=== PATIENT | male | born 1995 | race Caucasian/White ===

== ENCOUNTER 2024-04-18 17:45 | Emergency (ER) | payer BC, OTHER, SELFPAY ==
--- NOTE | ~2024-04-18 | XR_ITS ---
EXAMINATION: XR abdomen/kub 1V DATE: 04/19/2024 01:40 INDICATION: Kidney stone. TECHNIQUE: A supine view of the abdomen on 2 radiographs was obtained. COMPARISON: CT abdomen and pelvis 04/18/2024 FINDINGS: There are no dilated loops of bowel. There is contrast in the renal collecting system. Ther e is mild right hydronephrosis. There is a 9 mm stone at right ureteropelvic junction. The bladder is distended. IMPRESSION: 1. 9 mm stone at right ureteropelvic junction with mild right hydronephrosis. Reviewed, dictated and finalized at location A. IEVAL SPECIALIST
--- NOTE | ~2024-04-18 | CT_ITS ---
EXAMINATION: CT abdomen pelvis w con DATE: 04/18/2024 22:20 INDICATION: Lower abdominal pain. Nausea and vomiting. TECHNIQUE: Computed tomography (CT) of the abdomen and pelvis was performed with 100 mL Omnipaque 350 intravenous contrast. Automated exposure control and iterative reconstruction technique were employe d. The dose-length product was 834.53 mGy-cm. COMPARISON: None. FINDINGS: The visualized portions of the lung bases demonstrate mild atelectasis. No pleural effusion . The heart size is normal. No pericardial effusion. The liver, gallbladder, spleen, pancreas, and ad renal glands are normal. There are 3 stones in right kidney measuring up to 8 mm. There is mild right hydronephrosis. There is a 9 mm stone at right ureteropelvic junction. There are cysts in left kidne y measuring up to 2.4 cm. There is a 3 mm stone in left kidney. There are no dilated loops of bowel. The appendix is normal. There are no pathologically enlarged lymph nodes. There is no free intraperit leyva fluid. There is mild lumbar spondylosis. IMPRESSION: 1. 9 mm stone at right ureteropelvic junction with mild right hydronephrosis. 2. Bilateral nonobstructing kidney stones. Reviewed, dictated and finalized at location A. T
[2024-04-18 17:53] VITALS: BP 143/89; PULSE 91; RESP 18; TEMP 36.7; O2SAT 100
--- NOTE | 2024-04-18 21:20 | ED_ITS ---
HPI - Abdominal Pain General Chief Complaint: Abdominal Pain Stated Complaint: ABD PAIN SINCE 1200 Time Seen by Provider: 04/18/24 20:25 Source: patient Mode of arrival: ambulatory Limitations: no limitations History of Present Illness HPI narrative: Patient is a 29-year-old male who presents the ED with report of lower abdominal pain. Patient reports he began having pain around noon today. States pain has progressively worsened since then. Present throughout his lower abdomen and wraps around to his lower back like a band. Reports having nausea, vomiting. Did have a normal bowel movement around 2:00 p.m.. Denies rectal bleeding or melena. Denies known fevers. Denies urinary complaints. Denies cough or cold symptoms. Attempted taking Advil and Gas-X at home without improvement. States he has had this pain in the past with eating certain foods but the pain today was much more severe and persistent than any previous episodes. Related Data Allergies Allergy/AdvReac Type Severity Reaction Status Date / Time No Known Allergies Allergy Verified 04/18/24 17:46 Review of Systems 2 Review of Systems: All systems reviewed & are unremarkable except as noted in HPI. All systems reviewed & are unremarkable except as noted in HPI and below Exam 2 Narrative: GENERAL: Mildly ill/uncomfortable appearing, obese with BMI of 33.0, non-toxic, in mild acute distress due to pain. HEAD: Normocephalic, atraumatic. RESPIRATORY: Airway patent, respirations nonlabored. Clear to auscultation bilaterally, no rales, rhonchi, wheezing. CARDIOVASCULAR: Regular rate and rhythm without murmurs, rubs, or gallops. ABDOMINAL: Soft, diffuse tenderness in mid lower abdomen, suprapubic region. Nondistended. Normoactive BS. MUSCULOSKELETAL: Moves all extremities. No gross deformities. SKIN: Warm, dry, normal color. NEURO: A&O X3. Speech clear. PSYCHIATRIC: Appropriate mood and affect. Normal interaction. Course Vital Signs Vital signs: Vital Signs Temperature 98.1 F 04/18/24 17:53 Pulse Rate 91 04/18/24 17:53 Respiratory Rate 18 04/18/24 17:53 Blood Pressure 143/89 H 04/18/24 17:53 Pulse Oximetry 100 04/18/24 17:53 Oxygen Delivery Room Air 04/18/24 17:53 Temperature 98.6 F 04/18/24 21:42 Pulse Rate 84 04/18/24 21:42 Respiratory Rate 18 04/18/24 21:42 Blood Pressure 139/83 04/18/24 21:42 Pulse Oximetry 99 04/18/24 21:42 Oxygen Delivery Room Air 04/18/24 17:53 MDM - Abdominal Pain MDM Narrative Medical decision making narrative: Patient presented to ED with lower abdominal pain, nausea, vomiting. Vital signs are stable upon arrival. Patient is in no acute distress, but does appear mildly uncomfortable. He is afebrile here. Laboratory studies with marked leukocytosis of 18.9. Neutrophil predominance. No bandemia. CMP with anion gap of 15. Fluids ongoing. Otherwise stable electrolytes. Normal kidney function. LFTs are within normal range. Normal lipase. UA completely clear, no evidence of infection or blood. CT abd/pelvis obtained showing 11 mm right UPJ stone, moderate hydronephrosis. Discussed lab and imaging findings with patient. He has never had previous kidney stones. Does have family history of kidney stones. He is feeling much improved after dose of morphine and Zofran in the ED. Given 2 L of fluid. Will discuss with urology. KUB obtained. Discussed case with Dr. Domínguez, urology, agrees with plan for outpatient follow-up, strict return precautions. Call office on Saturday. Discussed these recommendations with patient. He is in agreement. He remains asymptomatic. Denying any current pain. Will discharge with Flomax, pain and nausea medicine for more severe episodes of pain if needed. Discussed very strict return precautions. Patient voiced understanding. Discharged in stable condition. Medical Records Attestation: I reviewed the patient's medical records. Lab Data Attestation: I reviewed the patient's lab results. 04/18/24 21:28 04/18/24 21:28 Labs: Lab Results 04/18/24 04/19/24 Range/Units 21:28 01:27 WBC 18.9 H (4.5-10.0) K/mm3 RBC 5.00 (4.6-6.20) M/mm3 Hgb 15.0 (14.0-18.0) g/dL Hct 43.0 (42.0-52.0) % MCV 86.0 (80-100) fl MCH 30.0 (26-34) pg MCHC 34.9 (32-36) g/dl RDW 12.7 (11.5-14.5) % Plt Count 368 (150-375) k/mm3 MPV 9.8 (7.4-10.4) fl Immature Gran % (Auto) 0.5 (0-0.5) % Neut % (Auto) 91.0 H (45.5-73.1) % Lymph % (Auto) 5.5 L (18.3-44.2) % [place] % (Auto) 2.7 (2.6-8.5) % Eos % (Auto) 0.0 (0-4.4) % Baso % (Auto) 0.3 (0.2-1.2) % Lymph # (Auto) 1.03 (0.9-3.2) K/mm3 [place] # (Auto) 0.5 (0.1-0.6) K/mm3 Eos # (Auto) 0.0 (0-0.3) K/mm3 Baso # (Auto) 0.1 (0.0-0.1) K/mm3 Abs Immat Gran (auto) 0.10 H (0.00-0.031) K/mm3 Absolute Neuts (auto) 17.2 H (1.3-6.7) K/mm3 Absolute Nucleated RBC 0.000 (0.0-0.012) K/mm3 Nucleated RBC % 0.0 (0.0-0.2) % Sodium 140 (137-145) mmol/L Potassium 4.2 (3.4-5.0) mmol/L Chloride 103 (98-107) mmol/L Carbon Dioxide 22 (22-30) mmol/L Anion Gap 15 H (4-12) mmol/L BUN 16 (9-20) mg/dL Creatinine 0.98 (0.7-1.3) mg/dL Estim Creat Clear Calc 101 ml/min Estimated GFR > 60 (59 - ) Glucose 142 H (65-110) mg/dL Calcium 10.2 (8.4-10.2) mg/dL Total Bilirubin 0.7 (0.2-1.3) mg/dL AST 39 (17-59) U/L ALT 55 H (6-50) U/L Alkaline Phosphatase 62 (38-126) U/L Total Protein 8.0 (6.3-8.2) g/dL Albumin 5.0 (3.5-5.1) g/dL Lipase 63 (23-300) U/L Urine Color Yellow (Yellow) Urine Appearance Clear (Clear) Urine pH 7.0 (5.0-9.0) Ur Specific [place] 1.033 (1.001-1.035) Urine Protein Negative (Negative) mg/dL Urine Glucose (UA) Negative (Negative) mg/dL Urine Ketones Negative (Negative) mg/dL Ur Blood (Man) Negative (Negative) Urine Nitrate Negative (Negative) Urine Bilirubin Negative (Negative) Urine Urobilinogen 0.2 (<2.0) mg/dL Leukocyte Esterase Rfl Negative (Negative) MINNIE/UL Imaging Data Attestation: I personally reviewed and interpreted this imaging study as follows: Radiologist's impression: STAT RAD CT abd/pelvis: Obstructing 11 mm right UPJ stone. Moderate hydronephrosis of the right kidney. Multiple nonobstructing right-sided renal stones, measuring up to 5 mm. 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 Take Flomax daily as prescribed. Continue Tylenol as needed for pain. Utilize [place] as needed for more severe pain. Recommend avoiding NSAIDs in preparation for future urologic procedure (no ibuprofen, Motrin, Aleve, naproxen). Use Zofran for nausea. Stay well hydrated. Return to the ED if you experience worsening or severe pain, unable to keep down food/drink, fevers, uncontrollable nausea/vomiting, unable to urinate, or any other symptoms of concern. Patient Language: Frisian Prescriptions: New hydrocodone-acetaminophen 5-325 mg tablet 1 tablet PO Q6H PRN (Reason: pain) Qty: 15 0RF tamsulosin [Flomax] 0.4 mg capsule 0.4 mg PO DAILY Qty: 7 0RF ondansetron 4 mg tablet,disintegrating 4 mg PO Q8H PRN (Reason: nausea and vomiting) Qty: 15 0RF Follow-up/Referrals: Omid Domínguez MD [Physician] - (UROLOGY) [facility] [Primary Care Provider] - Time of Disposition: 02:31
[2024-04-18] MEDS: ONDANSETRON INJ 4 MG/2 ML VIAL IV PUSH (21:33)
[2024-04-18] MEDS: SODIUM CHLORIDE 0.9% IV 1,000 ML 999 ML IV CONT ×2 (21:33→23:43)
[2024-04-18 21:34] LABS: Basophils Absolute Auto 0.1 K/mm3 (0.0-0.1); Basophils Percent Auto 0.3 % (0.2-1.2); Immature Granulocyte Percent A 0.5 % (0-0.5); Lymphocytes Absolute Auto 1.03 K/mm3 (0.9-3.2); Lymphocytes Percent Auto 5.5 % (18.3-44.2); Mean Corpuscular HGB Conc 34.9 g/dl (32-36); Mean Platelet Volume 9.8 fl (7.4-10.4); Monocytes Absolute Auto 0.5 K/mm3 (0.1-0.6); Monocytes Percent Auto 2.7 % (2.6-8.5); Neutrophils Absolute Auto 17.2 K/mm3 (1.3-6.7); Platelet Count Result 368 k/mm3 (150-375); Red Cell Distribution Width 12.7 % (11.5-14.5); White Blood Count 18.9 K/mm3 (4.5-10.0)
[2024-04-18] MEDS: MORPHINE SULFATE (*CRX) 4 MG/ML INJ IV PUSH (21:35)
[2024-04-18 21:42] VITALS: BP 139/83; PULSE 84; RESP 18; TEMP 37; O2SAT 99
--- OUTSIDE RECORDS SUMMARY | 2024-04-18 21:42 | XMS_ITS | Encounter Summary ---
Author Name [facility] [place] [facility] Address [address] [place] [address] Care Team Providers Care Rigger Up Name Role Phone DANK MENDOSA Primary Care Provider Unavail able Selected Encounter This section includes the information on record at [place] for the Encounter. Date/Time Encounter Type Encounter Description Reason Pro vider Source Jan 29, 2024 11:01 AM Outpatient Encounter [facility] Encounter Template Text not used by [place] Plan of Treatment: Future Appointments (+ 6 months) and Future Tests (+/- 45 days) The Plan of Treatment section includes future care activities for the patient from all [place] treatmentfacilities. This section includes future appointments and future orders which are active, pending or scheduled. Future Appointments This section includes appointments that were scheduled to occur 6 months from the date of the Encounter, up to a maximum of 20 appointments. The data comes from all [place] treatment facilities. Appointment Date/Time Appointment Type Appointme nt Facility Name Jan 31, 2024 10:00 AM AMBULATORY - NONE [facility] Feb 28, 2024 01:00 PM AMBULATORY - MEDICINE [facility] Mar 05, 2024 01:00 PM AMBULATORY - NONE [facility] Mar 10, 2024 03:00 PM AMBULATORY - MEDICINE [facility] Mar 13, 2024 10:30 AM AMBULATORY - NONE [facility] Mar 20, 2024 09:00 AM AMBULATORY - NONE [facility] BHARGAVI Broderick [facility] Mar 20, 2024 10:30 AM AMBULATORY - NONE [facility] Apr 24, 2024 10:00 AM AMBULATORY - NONE [facility]ARGAV[facility] Apr 24, 2024 01:00 PM AMBULATORY - MEDICINE [facility] Apr 29, 2024 06:45 AM AMBULATORY - NONE [facility] Apr 29, 2024 07:00 AM AMBULATORY - MEDICINE [facility] May 20, 2024 03:00 PM AMBULATORY - SURGERY [facility] May 22, 2024 10:30 AM AMBULATORY - NONE [facility] May 29, 2024 10:30 AM AMBULATORY - NONE [facility] BHARGAV[facility] Jun 16, 2024 03:00 PM AMBULATORY - MEDICINE [facility] Active, Pending, and Scheduled Orders This section includes a listing of several types of active, pending, and scheduled orders, including clinic medications orders, diagnostic test orders, procedure orders and consult orders; where the start date of the order is 45 days before the date of the Encounter or 45 days after the date of theEncounter. The data comes from all [place] treatment facilities. Test Date/Time Test Type Test Details Facility Name Jan 17, 2024 09:07 AM Procedure Order CP ELECTRO PHYSIOLOGY STL CP ELECTROPHYSIOLOGY STL Proc [facility] Jan 29, 2024 11:17 AM Consult Order [facility] MANDIBULAR REPOSITIONING DEVICE [facility] Cons [facility] Encounter Notes: All associated encounter notes This section contains the clinical notes associated to the Encounter. Date/Time Encounter Note(s) Provider Source Jan 29, 2024 11:01 AM ADMINISTRATIVE NOT E: LOCAL TITLE: ADMINISTRATIVE STL STANDARD TITLE: ADMINISTRATIVE NOTE DATE OF NOTE: JAN 29, 2024@11:01 ENTRY DATE: JAN 29, 2024@11:01:51 AUTHOR: DILLAN MARTINEZ COSIGNER: URGENCY: STATUS: COMPLETED [facility] received a call from the ; 's name, last four of N, and date of were used to verify identity. REASON FOR CALL: [facility] CARE MANDIBULAR REPOSITIONING DEVICE CONSULT REQUEST The is requesting a consult to be sent to: [facility] [address] , [address] [place] [address] P:[phone] F: [phone] (use [employer] NPI below) /es/ DILLAN JUAN [employer]IT [employer]ER Signed: 01/29/2024 11:06 Receipt Acknowledged By: 01/29/2024 11:16 /es/ PATIENCE BENOIT- NURSE PRACTITIONER * AWAITING SIGNATURE * BROOKE ALMONTE,DILLAN [facility]
--- OUTSIDE RECORDS SUMMARY | 2024-04-18 21:42 | XMS_ITS | Encounter Summary ---
Author Name [facility] [place] [facility] [facility] [place] Address [address] [place] [address] Care Team Providers Care Business Process Manager Name Role Phone DANK MENDOSA Primary Care Provider Unavail able Selected Encounter This section includes the information on record at [place] for the Encounter. 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 Date/Time Primary/Secondary Diagnosis Diagnosis Name Provider Source Jan 14, 2024 04:37 PM PRIMARY Pre-excitation syndrome RUBIO DE [facility] Plan of Treatment: Future Appointments (+ 6 months) and Future Tests (+/- 45 days) The Plan of Treatment section includes future care activities for the patient from all [place] treatmentfacilities. This section includes future appointments and future orders which are active, pending or scheduled. Future Appointments This section includes appointments that were scheduled to occur 6 months from the date of the Encounter, up to a maximum of 20 appointments. The data comes from all [place] treatment facilities. Appointment Date/Time Appointment Type Appointme nt Facility Name Jan 31, 2024 10:00 AM AMBULATORY - NONE [facility] Feb 28, 2024 01:00 PM AMBULATORY - MEDICINE [facility] Mar 05, 2024 01:00 PM AMBULATORY - NONE [facility] Mar 10, 2024 03:00 PM AMBULATORY - MEDICINE [facility] Mar 13, 2024 10:30 AM AMBULATORY - NONE . BHARGAVI Broderick [facility] Mar 20, 2024 09:00 AM AMBULATORY - NONE . BHARGAVI Broderick [facility] Mar 20, 2024 10:30 AM AMBULATORY - NONE . BHARGAVI Davie [facility] Apr 24, 2024 10:00 AM AMBULATORY - NONE [facility] BHARGAVI Broderick [facility] Apr 24, 2024 01:00 PM AMBULATORY - MEDICINE [facility] Apr 29, 2024 06:45 AM AMBULATORY - NONE [facility] Apr 29, 2024 07:00 AM AMBULATORY - MEDICINE [facility] May 20, 2024 03:00 PM AMBULATORY - SURGERY [facility] May 22, 2024 10:30 AM [facility] - NONE [facility] May 29, 2024 10:30 AM AMBULATORY - NONE [facility] BHARGAVI Davie [facility] Jun 16, 2024 03:00 PM AMBULATORY - MEDICINE [facility] Active, Pending, and Scheduled Orders This section includes a listing of several types of active, pending, and scheduled orders, including clinic medications orders, diagnostic test orders, procedure orders and consult orders; where the start date of the order is 45 days before the date of the Encounter or 45 days after the date of theEncounter. The data comes from all [place] treatment facilities. Test Date/Time Test Type Test Details Facility Name Jan 17, 2024 09:07 AM Procedure Order CP ELECTRO PHYSIOLOGY ST[facility] CP ELECTROPHYSIOLOGY ST[facility] Proc [facility] Jan 29, 2024 11:17 AM Consult Order COMMUNITY CARE-SLEEP MANDIBULAR REPOSITIONING DEVICE [facility] Cons [facility] Vital Signs: All taken on the encounter date This section contains inpatient and outpatient Vital Signs collected on the date of the Encounter. Date/Time Temperature Pulse Blood Pressure Respiratory Rate SP02 Pain Height Weight Body Mass Index Source Jan 14, 2024 03:30 PM 97 129/87 98 [facility] Encounter Notes: All associated encounter notes This section contains the clinical notes associated to the Encounter. Date/Time Encounter Note(s) Provider Source Jan 27, 2024 11:17 AM ADDENDUM: LOCAL TITLE: Addendum STANDARD TITLE: ADDENDUM DATE OF NOTE: JAN 27, 2024@11:17:10 ENTRY DATE: JAN 27, 2024@11:17:11 AUTHOR: CATHERINE GONZALEZ EXP COSIGNER: URGENCY: STATUS: COMPLETED Vet is wearing LIFEVEST 23.5 hrs/day avg. PO good till 03/03/2024 /chey/ Catherine Gonzalez,RN,BSN Registered Nurse Signed: 01/27/2024 11:18 Receipt Acknowledged By: 01/28/2024 12:08 /es/ RUBIO DE MD CLINICAL CARDIAC COMPLIANCE PROGRAM MANAGER --- Original Document --- 01/14/24 CARDIOLOGY OUTPATIENT CONSULT ST[facility]: CARDIAC ELECTROPHYSIOLOGY OUTPATIENT CONSULTATION HISTORY: The patient is a 28-year-old man with history of hypertension and Jerardo- Parkinson-White. He is referred by Dr. Evans. 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 He was diagnosed with hypertension and had a routine EKG. He was subsequent diagnosed with WPW. He was having palpitations. He had a stress test done in May 2022 and was told it was a low risk pathway. He also had an echo done in 2022. He was offered ablation or conservative management and the decision was made to proceed with ablation. Ablation was attempted in July 2022 at [facility] but was told it was unsuccessful. He has occasional palpitations about once a week lasting about 5 seconds. His EKG was consistent with WPW. It appears to be a right lateral pathway. He saw Dr. Prieto who ordered a 30-day event monitor. This showed episodes of paroxysmal atrial flutter with respiratory variation. I do not think his QRS duration actually changes in terms of fusion. He had about 2 hours total of paroxysmal atrial flutter. There was no evidence of atrial fibrillation. After receiving this event monitor, I was contacted and arranged for the patient to have a LifeVest pending his evaluation. He denies any syncope or presyncope but continues to have occasional palpitations. ROS- Unless otherwise stated, all ROS has been reviewed and is negative for presenting complaint. CURRENT MEDICATIONS: Active Outpatient Medications (excluding Supplies): Issue Date Status Last Fill Active Outpatient Medications Refills Expiration 1) LISINOPRIL 20MG TAB Qty: 45 for 90 days ACTIVE Issu:09-17-23 Sig: TAKE ONE-HALF TABLET BY MOUTH Refills: 0 Last:12-08-23 ONCE A DAY FOR HIGH BLOOD PRESSURE Expr:09-17-24 2) MAGNESIUM OXIDE 400MG TAB Qty: 120 for ACTIVE Issu:12-31-23 90 days Sig: TAKE ONE TABLET BY MOUTH Refills: 1 Last:01-02-24 ONCE A DAY Expr:12-31-24 3) RIBOFLAVIN 100MG TAB Qty: 100 for 90 ACTIVE Issu:12-03-23 days Sig: TAKE ONE TABLET BY MOUTH Refills: 1 Last:12-06-23 ONCE A DAY HEADACHE TAKE WITH FOOD Expr:12-03-24 Start Date Active Non-VA Medications Refills Expiration 1) Non-VA CHOLECALCIF 10MCG (D3-400UNIT) ACTIVE TAB SiMCG BY MOUTH ONCE A DAY 2) Non-VA FISH OIL 1000MG (500MG DHA/EPA) ACTIVE CAP,ORAL Sig: BY MOUTH 3) Non-VA MULTIVITAMIN CAP/TAB Si ACTIVE TABLET BY MOUTH ONCE A DAY 6 Total Medications Medication List Reconciliation: Current medication list was reviewed with the patient and/or caregiver and compared to current list of medications in [facility]. The medicaton list was updated to reflect any changes. The importance of medication managment was explained and patient and/or caregiver was receptive and verbalized understanding. 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 Denies any atrial fibrillation. 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 He is wearing a LifeVest due to possible risk of increase in . I would like to obtain records from [facility] in [facility] including procedure reports, clinic visits, stress test and his echo. After review of the records we will plan the next plan of action which could attempt a catheter ablation at the [facility] as well as ablation of atrial flutter by myself or referral to [facility] depending on the findings. He will continue to wear the LifeVest for now and once I receive the records I will call him back to determine the next plan of action. Thank you for letting me participate in the case of this very pleasant patient. Please contact me if you have any questions. Rubio De M.D. Clinical Cardiac Electrophysiology This note was transcribed using voice detection software. Please excuse any errors. Timur/Taylor/Hillary: Can we try to get old records from [facility] in [facility] including procedure reports, clinic visits, stress test and echoes. Health Maintenance All patients are counseled on the risks of smoking at every visit including patients with no history of smoking in order to dissuade them from starting the use of tobacco products; former smokers to minimize recidivism of nicotine dependence; and current smokers in an effort to help them cease the use of nicotine products. Where relevant [age between 50-60-years and history of smoking], we and/or the PCP will obtain an abdominal ultrasound to screen for the possibility of an abdominal aortic aneurysm and ABIs to screen for occult PAD. When completed, the results will be found in [facility]. Where relevant all echocardiograms (including transthoracic and transesophogeal echocardiograms), laboratory results, imaging results and procedure results that have been ordered have results communicated to the patient by myself, surrogate and/or the PCP. When completed, the results will be in the appropriate area in [facility] or [facility]. # HEALTH PROMOTION/HEALTH MAINTENANCE & EDUCATION DISEASE: Discussed treatment options & counseled on exacerbating factors. # DIAGNOSTIC TESTING AND LABORATORY DATA: Pertinent labs and diagnostic tests (both normal and abnormal) are included above and were reviewed and discussed with the patient within 7-days of the test and during this visit. - DISEASE: Coordinated care; discussed treatment options, & counseled on ` exacerbating factors. - Encouraged participation in regular exercise program 3-5 days/week - Maximize risk factor reduction & lifestyle modifications i.e. BP <130/80 and LDL goal <70 - Discussed at length about lifestyle modifications in regard to diet, exercise, and medication compliance. -Assessed smoking habits and whether actively using tobacco products or a past history of nicotine dependence, smoking cessation strategies were reinforced. - In patients with a history of CHF, NICO/ARB use is considered and held when contraindications such as allergies, renal function preclude use. If not mentioned in the above note, these assessments are detailed in prior cardiology notes. The patient verbalized understanding of information regarding: labs, meds, and plans for care. Reinforcement is indicated. # MEDICATION RECONCILIATION: - All cardiac medications were reconciled during the visit. - All patients with an EF </= 40% are considered for Nico inhibitors or ARBs except when contraindicated due to intolerance/allergy, hypotension, or renal disease. Documentation is found in the historical record if not repeated in this note. - All patients with an EF </= 40% are considered for beta blockers and aspirin unless contraindicated due to intolerance/allergy, hypotension, bradycardia, or bleeding risk. Documentation is found in the historical record if not repeated in this note. - Anticoagulation therapy was discussed with all patients in the setting of atrial flutter/fibrillation and held in cases where the complications of bleeding (e.g., fall risk) outweighs the risk of stroke. All patients on anticoagulation medications are counseled on bleeding risks and the warning signs of a stroke or TIA. - Except where mentioned or restricted, the PCP may renew the cardiac medications. - Other listed profile meds will continue as directed by the PCP (primary provider). Thank you for allowing us to participate in this patient's care. Total time spent = 60 minutes /chey/ RUBIO DE MD CLINICAL CARDIAC COMPLIANCE PROGRAM MANAGER Signed: 01/14/2024 16:38 Receipt Acknowledged By: 01/15/2024 10:29 /chey/ TAYLOR ROCKWELL WEIGHTS AND MEASURES SEALER 01/15/2024 07:15 /es/ HILLARY BATISTA MSN, BSN, CCRN 01/15/2024 08:27 /chey/ TIMUR APONTEN,RN,CEPS REGISTERED NURSE 01/15/2024 ADDENDUM STATUS: COMPLETED ALL RECORDS FROM [place] [facility]. /chey/ TIMUR APONTEN,RN,CEPS REGISTERED NURSE Signed: 01/15/2024 08:27 Receipt Acknowledged By: 01/16/2024 12:54 /chey/ RUBIO DE MD CLINICAL CARDIAC COMPLIANCE PROGRAM MANAGER JATIN GONZALZE [facility] Jan 15, 2024 08:23 AM ADDENDUM: LOCAL TITLE: Addendum STANDARD TITLE: ADDENDUM DATE OF NOTE: JAN 15, 2024@08:23:01 ENTRY DATE: JAN 15, 2024@08:23:02 AUTHOR: TIMUR REAL EXP COSIGNER: URGENCY: STATUS: COMPLETED ALL RECORDS FROM [place] [facility]. /chey/ TIMUR REAL BSN,RN,CEPS REGISTERED NURSE Signed: 01/15/2024 08:27 Receipt Acknowledged By: 01/16/2024 12:54 /es/ RUBIO DE MD CLINICAL CARDIAC COMPLIANCE PROGRAM MANAGER --- Original Document --- 01/14/24 CARDIOLOGY OUTPATIENT CONSULT ST[facility]: CARDIAC ELECTROPHYSIOLOGY OUTPATIENT CONSULTATION HISTORY: The patient is a 28-year-old man with history of hypertension and Jerardo- Parkinson-White. He is referred by Dr. Evans. 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 He was diagnosed with hypertension and had a routine EKG. He was subsequent diagnosed with WPW. He was having palpitations. He had a stress test done in May 2022 and was told it was a low risk pathway. He also had an echo done in 2022. He was offered ablation or conservative management and the decision was made to proceed with ablation. Ablation was attempted in July 2022 at [facility] but was told it was unsuccessful. He has occasional palpitations about once a week lasting about 5 seconds. His EKG was consistent with WPW. It appears to be a right lateral pathway. He saw Dr. Prieto who ordered a 30-day event monitor. This showed episodes of paroxysmal atrial flutter with respiratory variation. I do not think his QRS duration actually changes in terms of fusion. He had about 2 hours total of paroxysmal atrial flutter. There was no evidence of atrial fibrillation. After receiving this event monitor, I was contacted and arranged for the patient to have a LifeVest pending his evaluation. He denies any syncope or presyncope but continues to have occasional palpitations. ROS- Unless otherwise stated, all ROS has been reviewed and is negative for presenting complaint. CURRENT MEDICATIONS: Active Outpatient Medications (excluding Supplies): Issue Date Status Last Fill Active Outpatient Medications Refills Expiration 1) LISINOPRIL 20MG TAB Qty: 45 for 90 days ACTIVE Issu:09-17-23 Sig: TAKE ONE-HALF TABLET BY MOUTH Refills: 0 Last:12-08-23 ONCE A DAY FOR HIGH BLOOD PRESSURE Expr:09-17-24 2) MAGNESIUM OXIDE 400MG TAB Qty: 120 for ACTIVE Issu:12-31-23 90 days Sig: TAKE ONE TABLET BY MOUTH Refills: 1 Last:01-02-24 ONCE A DAY Expr:12-31-24 3) RIBOFLAVIN 100MG TAB Qty: 100 for 90 ACTIVE Issu:12-03-23 days Sig: TAKE ONE TABLET BY MOUTH Refills: 1 Last:12-06-23 ONCE A DAY HEADACHE TAKE WITH FOOD Expr:12-03-24 Start Date Active Non-VA Medications Refills Expiration 1) Non-VA CHOLECALCIF 10MCG (D3-400UNIT) ACTIVE TAB SiMCG BY MOUTH ONCE A DAY 2) Non-VA FISH OIL 1000MG (500MG DHA/EPA) ACTIVE CAP,ORAL Sig: BY MOUTH 3) Non-VA MULTIVITAMIN CAP/TAB Si ACTIVE TABLET BY MOUTH ONCE A DAY 6 Total Medications Medication List Reconciliation: Current medication list was reviewed with the patient and/or caregiver and compared to current list of medications in [facility]. The medicaton list was updated to reflect any changes. The importance of medication managment was explained and patient and/or caregiver was receptive and verbalized understanding. 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 Denies any atrial fibrillation. 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 He is wearing a LifeVest due to possible risk of increase in . I would like to obtain records from [facility] in [facility] including procedure reports, clinic visits, stress test and his echo. After review of the records we will plan the next plan of action which could attempt a catheter ablation at the [facility] as well as ablation of atrial flutter by myself or referral to [facility] depending on the findings. He will continue to wear the LifeVest for now and once I receive the records I will call him back to determine the next plan of action. Thank you for letting me participate in the case of this very pleasant patient. Please contact me if you have any questions. Rubio De M.D. Clinical Cardiac Electrophysiology This note was transcribed using voice detection software. Please excuse any errors. Timur/Taylor/Hillary: Can we try to get old records from [facility] in [facility] including procedure reports, clinic visits, stress test and echoes. Health Maintenance All patients are counseled on the risks of smoking at every visit including patients with no history of smoking in order to dissuade them from starting the use of tobacco products; former smokers to minimize recidivism of nicotine dependence; and current smokers in an effort to help them cease the use of nicotine products. Where relevant [age between 50-60-years and history of smoking], we and/or the PCP will obtain an abdominal ultrasound to screen for the possibility of an abdominal aortic aneurysm and ABIs to screen for occult PAD. When completed, the results will be found in [facility]. Where relevant all echocardiograms (including transthoracic and transesophogeal echocardiograms), laboratory results, imaging results and procedure results that have been ordered have results communicated to the patient by myself, surrogate and/or the PCP. When completed, the results will be in the appropriate area in [facility] or [facility]. # HEALTH PROMOTION/HEALTH MAINTENANCE & EDUCATION DISEASE: Discussed treatment options & counseled on exacerbating factors. # DIAGNOSTIC TESTING AND LABORATORY DATA: Pertinent labs and diagnostic tests (both normal and abnormal) are included above and were reviewed and discussed with the patient within 7-days of the test and during this visit. - DISEASE: Coordinated care; discussed treatment options, & counseled on ` exacerbating factors. - Encouraged participation in regular exercise program 3-5 days/week - Maximize risk factor reduction & lifestyle modifications i.e. BP <130/80 and LDL goal <70 - Discussed at length about lifestyle modifications in regard to diet, exercise, and medication compliance. -Assessed smoking habits and whether actively using tobacco products or a past history of nicotine dependence, smoking cessation strategies were reinforced. - In patients with a history of CHF, NICO/ARB use is considered and held when contraindications such as allergies, renal function preclude use. If not mentioned in the above note, these assessments are detailed in prior cardiology notes. The patient verbalized understanding of information regarding: labs, meds, and plans for care. Reinforcement is indicated. # MEDICATION RECONCILIATION: - All cardiac medications were reconciled during the visit. - All patients with an EF </= 40% are considered for Nico inhibitors or ARBs except when contraindicated due to intolerance/allergy, hypotension, or renal disease. Documentation is found in the historical record if not repeated in this note. - All patients with an EF </= 40% are considered for beta blockers and aspirin unless contraindicated due to intolerance/allergy, hypotension, bradycardia, or bleeding risk. Documentation is found in the historical record if not repeated in this note. - Anticoagulation therapy was discussed with all patients in the setting of atrial flutter/fibrillation and held in cases where the complications of bleeding (e.g., fall risk) outweighs the risk of stroke. All patients on anticoagulation medications are counseled on bleeding risks and the warning signs of a stroke or TIA. - Except where mentioned or restricted, the PCP may renew the cardiac medications. - Other listed profile meds will continue as directed by the PCP (primary provider). Thank you for allowing us to participate in this patient's care. Total time spent = 60 minutes /es/ RUBIO DE MD CLINICAL CARDIAC COMPLIANCE PROGRAM MANAGER Signed: 01/14/2024 16:38 Receipt Acknowledged By: 01/15/2024 10:29 /es/ TAYLOR ROCKWELL WEIGHTS AND MEASURES SEALER 01/15/2024 07:15 /es/ HILLARY BATISTA MSN, BSN, CCRN 01/15/2024 08:27 /es/ TIMUR REAL BSN,RN,CEPS REGISTERED NURSE [facility] Jan 14, 2024 04:29 PM CARDIOLOGY CONSULT: LOCAL TITLE: CARDIOLOGY OUTPATIENT CONSULT [facility] STANDARD TITLE: CARDIOLOGY CONSULT DATE OF NOTE: JAN 14, 2024@16:29 ENTRY DATE: JAN 14, 2024@16:29:59 AUTHOR: RUBIO DE EXP COSIGNER: URGENCY: STATUS: COMPLETED CARDIOLOGY OUTPATIENT CONSULT ST Has ADDENDA CARDIAC ELECTROPHYSIOLOGY OUTPATIENT CONSULTATION HISTORY: The patient is a 28-year-old man with history of hypertension and Jerardo- Parkinson-White. He is referred by Dr. Evans. 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 He was diagnosed with hypertension and had a routine EKG. He was subsequent diagnosed with WPW. He was having palpitations. He had a stress test done in May 2022 and was told it was a low risk pathway. He also had an echo done in 2022. He was offered ablation or conservative management and the decision was made to proceed with ablation. Ablation was attempted in July 2022 at [facility] but was told it was unsuccessful. He has occasional palpitations about once a week lasting about 5 seconds. His EKG was consistent with WPW. It appears to be a right lateral pathway. He saw Dr. Prieto who ordered a 30-day event monitor. This showed episodes of paroxysmal atrial flutter with respiratory variation. I do not think his QRS duration actually changes in terms of fusion. He had about 2 hours total of paroxysmal atrial flutter. There was no evidence of atrial fibrillation. After receiving this event monitor, I was contacted and arranged for the patient to have a LifeVest pending his evaluation. He denies any syncope or presyncope but continues to have occasional palpitations. ROS- Unless otherwise stated, all ROS has been reviewed and is negative for presenting complaint. CURRENT MEDICATIONS: Active Outpatient Medications (excluding Supplies): Issue Date Status Last Fill Active Outpatient Medications Refills Expiration 1) LISINOPRIL 20MG TAB Qty: 45 for 90 days ACTIVE Issu:09-17-23 Sig: TAKE ONE-HALF TABLET BY MOUTH Refills: 0 Last:12-08-23 ONCE A DAY FOR HIGH BLOOD PRESSURE Expr:09-17-24 2) MAGNESIUM OXIDE 400MG TAB Qty: 120 for ACTIVE Issu:12-31-23 90 days Sig: TAKE ONE TABLET BY MOUTH Refills: 1 Last:01-02-24 ONCE A DAY Expr:12-31-24 3) RIBOFLAVIN 100MG TAB Qty: 100 for 90 ACTIVE Issu:12-03-23 days Sig: TAKE ONE TABLET BY MOUTH Refills: 1 Last:12-06-23 ONCE A DAY HEADACHE TAKE WITH FOOD Expr:12-03-24 Start Date Active Non-VA Medications Refills Expiration 1) Non-VA CHOLECALCIF 10MCG (D3-400UNIT) ACTIVE TAB SiMCG BY MOUTH ONCE A DAY 2) Non-VA FISH OIL 1000MG (500MG DHA/EPA) ACTIVE CAP,ORAL Sig: BY MOUTH 3) Non-VA MULTIVITAMIN CAP/TAB Si ACTIVE TABLET BY MOUTH ONCE A DAY 6 Total Medications Medication List Reconciliation: Current medication list was reviewed with the patient and/or caregiver and compared to current list of medications in [facility]. The medicaton list was updated to reflect any changes. The importance of medication managment was explained and patient and/or caregiver was receptive and verbalized understanding. 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 Denies any atrial fibrillation. 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 He is wearing a LifeVest due to possible risk of increase in . I would like to obtain records from [facility] in [facility] including procedure reports, clinic visits, stress test and his echo. After review of the records we will plan the next plan of action which could attempt a catheter ablation at the [facility] as well as ablation of atrial flutter by myself or referral to [facility] depending on the findings. He will continue to wear the LifeVest for now and once I receive the records I will call him back to determine the next plan of action. Thank you for letting me participate in the case of this very pleasant patient. Please contact me if you have any questions. Rubio De M.D. Clinical Cardiac Electrophysiology This note was transcribed using voice detection software. Please excuse any errors. Timur/Taylor/Hillary: Can we try to get old records from [facility] in [facility] including procedure reports, clinic visits, stress test and echoes. Health Maintenance All patients are counseled on the risks of smoking at every visit including patients with no history of smoking in order to dissuade them from starting the use of tobacco products; former smokers to minimize recidivism of nicotine dependence; and current smokers in an effort to help them cease the use of nicotine products. Where relevant [age between 50-60-years and history of smoking], we and/or the PCP will obtain an abdominal ultrasound to screen for the possibility of an abdominal aortic aneurysm and ABIs to screen for occult PAD. When completed, the results will be found in [facility]. Where relevant all echocardiograms (including transthoracic and transesophogeal echocardiograms), laboratory results, imaging results and procedure results that have been ordered have results communicated to the patient by myself, surrogate and/or the PCP. When completed, the results will be in the appropriate area in [facility] or [facility]. # HEALTH PROMOTION/HEALTH MAINTENANCE & EDUCATION DISEASE: Discussed treatment options & counseled on exacerbating factors. # DIAGNOSTIC TESTING AND LABORATORY DATA: Pertinent labs and diagnostic tests (both normal and abnormal) are included above and were reviewed and discussed with the patient within 7-days of the test and during this visit. - DISEASE: Coordinated care; discussed treatment options, & counseled on ` exacerbating factors. - Encouraged participation in regular exercise program 3-5 days/week - Maximize risk factor reduction & lifestyle modifications i.e. BP <130/80 and LDL goal <70 - Discussed at length about lifestyle modifications in regard to diet, exercise, and medication compliance. -Assessed smoking habits and whether actively using tobacco products or a past history of nicotine dependence, smoking cessation strategies were reinforced. - In patients with a history of CHF, NICO/ARB use is considered and held when contraindications such as allergies, renal function preclude use. If not mentioned in the above note, these assessments are detailed in prior cardiology notes. The patient verbalized understanding of information regarding: labs, meds, and plans for care. Reinforcement is indicated. # MEDICATION RECONCILIATION: - All cardiac medications were reconciled during the visit. - All patients with an EF </= 40% are considered for Nico inhibitors or ARBs except when contraindicated due to intolerance/allergy, hypotension, or renal disease. Documentation is found in the historical record if not repeated in this note. - All patients with an EF </= 40% are considered for beta blockers and aspirin unless contraindicated due to intolerance/allergy, hypotension, bradycardia, or bleeding risk. Documentation is found in the historical record if not repeated in this note. - Anticoagulation therapy was discussed with all patients in the setting of atrial flutter/fibrillation and held in cases where the complications of bleeding (e.g., fall risk) outweighs the risk of stroke. All patients on anticoagulation medications are counseled on bleeding risks and the warning signs of a stroke or TIA. - Except where mentioned or restricted, the PCP may renew the cardiac medications. - Other listed profile meds will continue as directed by the PCP (primary provider). Thank you for allowing us to participate in this patient's care. Total time spent = 60 minutes /chey/ RUBIO DE MD CLINICAL CARDIAC COMPLIANCE PROGRAM MANAGER Signed: 01/14/2024 16:38 Receipt Acknowledged By: 01/15/2024 10:29 /chey/ TAYLOR ROCKWELL WEIGHTS AND MEASURES SEALER 01/15/2024 07:15 /es/ HILLARY BATISTA MSN, BSN, CCRN 01/15/2024 08:27 /chey/ TIMUR REAL BSN,RN,CEPS REGISTERED NURSE 01/15/2024 ADDENDUM STATUS: COMPLETED ALL RECORDS FROM [place] [facility]. /chey/ TIMUR REAL BSN,RN,CEPS REGISTERED NURSE Signed: 01/15/2024 08:27 Receipt Acknowledged By: 01/16/2024 12:54 /chey/ RUBIO DE MD CLINICAL CARDIAC COMPLIANCE PROGRAM MANAGER 01/27/2024 ADDENDUM STATUS: COMPLETED Vet is wearing LIFEVEST 23.5 hrs/day avg. PO good till 03/03/2024 /chey/ Catherine Gonzalez,RN,BSN Registered Nurse Signed: 01/27/2024 11:18 Receipt Acknowledged By: * AWAITING SIGNATURE * RUBIO DE NIKHIL C [facility]
--- OUTSIDE RECORDS SUMMARY | 2024-04-18 21:43 | XMS_ITS | Encounter Summary ---
Author Name [facility] Organization [facility] Address [address] [place] [address] Care Team Providers Care Systems Navigator Name Role Phone DANK MENDOSA Primary Care Provider Unavail able Selected Encounter This section includes the information on record at [place] for the Encounter. Date/Time Encounter Type Encounter Description Reason Provider Source Mar 10, 2024 03:00 PM OFFICE O/P EST MOD 30 MIN NEUROLOGY ICD-10-CM R51.9 Headache, unspecified GASPERSHELBI H MARK Kayleigh Encounter Template Text not used by [place] Assessments - Encounter Diagnoses This section includes the primary and secondary diagnoses documented for the Encounter. Date/Time Primary/Secondary Diagnosis Diagnosis Name Provider Source Mar 10, 2024 03:28 PM PRIMARY Headache, unspecified LENNARTZ,SHELBI H MARK [facility] Mar 10, 2024 03:28 PM SECONDARY Depression, unspecified LENNARTZ,SHELBI H MARK [facility] Mar 10, 2024 03:28 PM SECONDARY Essential (primary) hypertension GASPERSHELBI H MARK [facility] Plan of Treatment: Future Appointments (+ 6 months) and Future Tests (+/- 45 days) The Plan of Treatment section includes future care activities for the patient from all [place] treatmentfacilities. This section includes future appointments and future orders which are active, pending or scheduled. Future Appointments This section includes appointments that were scheduled to occur 6 months from the date of the Encounter, up to a maximum of 20 appointments. The data comes from all [place] treatment [facility]. Appointment Date/Time Appointment Type Appointme nt Facility Name Mar 13, 2024 10:30 AM AMBULATORY - NONE [facility] BHARGAVI Broderick [facility] Mar 20, 2024 09:00 AM AMBULATORY - NONE [facility] BHARGAV[facility] Davie [facility] Mar 20, 2024 10:30 AM AMBULATORY - NONE [facility] Apr 24, 2024 10:00 AM AMBULATORY - NONE [facility] Apr 24, 2024 01:00 PM AMBULATORY - MEDICINE [facility] Apr 29, 2024 06:45 AM AMBULATORY - NONE [facility] Apr 29, 2024 07:00 AM AMBULATORY - MEDICINE [facility] May 20, 2024 03:00 PM AMBULATORY - SURGERY . Jaylon FLORES [facility] May 22, 2024 10:30 AM AMBULATORY - NONE [facility] May 29, 2024 10:30 AM AMBULATORY - NONE [facility] Jun 16, 2024 03:00 PM AMBULATORY - MEDICINE [facility] Active, Pending, and Scheduled Orders This section includes a listing of several types of active, pending, and scheduled orders, including clinic medications orders, diagnostic test orders, procedure orders and consult orders; where the start date of the order is 45 days before the date of the Encounter or 45 days after the date of theEncounter. The data comes from all [facility]. Test Date/Time Test Type Test Details Facility Name Jan 29, 2024 11:17 AM Consult Order COMMUNITY CARE-SLEEP MANDIBULAR REPOSITIONING DEVICE [facility] Cons Graduate Rn's Choice [facility] Encounter Notes: All associated encounter notes This section contains the clinical notes associated to the Encounter. Date/Time Encounter Note(s) Provider Source Mar 10, 2024 02:55 PM NEUROLOGY OUTPATIE NT NOTE: LOCAL TITLE: NEUROLOGY OUTPATIENT FOLLOW UP STL STANDARD TITLE: NEUROLOGY OUTPATIENT NOTE DATE OF NOTE: MAR 10, 2024@14:55 ENTRY DATE: MAR 10, 2024@14:55:28 AUTHOR: TIFFANY JACKMAN EXP COSIGNER: URGENCY: STATUS: COMPLETED NEUROLOGY FOLLOW UP APPOINTMENT ===== SUBJECTIVE Source(s) of history: Patient and/or other Reliability of source(s): Reliable CHIEF COMPLAINT: headaches Last plan: Chronic unspecified headaches -Abnormal presentation of tension headache vs abnormal presentation of migraine vs primary stabbing headache -Start riboflavin - [facility] - hydrate adequately -Advised to exercise least 30 minutes a day for 5 days/week - CRP and ESR to rule out GCA - return to clinic in 3 months -Advised to call should his headaches change in intensity, characteristic, frequency INTERIM HISTORY: [place] states that he has had no noticeable change to his headaches in the past 3 to 4 months. [place] states that the prescribed riboflavin made headaches significantly worse, and the magnesium had a neutral effect on his headaches (no improvement or worsening). He states that his headaches are still occurring daily, however he states that they are lasting anywhere from 1 to 3 hours at a time and have a pressure feeling around his entire head. Other times they present unilaterally behind eyes, and other times globally. He states that if he does take an aspirin he starts feeling relief from pain after about 1.5 hours, and without Advil or aspirin it gradually went away on its own after about 3 hours. He states the intensity is never gotten to the point where he needs to stop what he is doing, but he would still like something to be done if he can avoid. Christopher states that he would like to avoid pharmacotherapy if at all possible, stating he would like to try supplemental holistic therapy first. Christopher states he did battlefield acupuncture which did not work the degree that he wanted to, and as result he is now set up for full body acupuncture within the next few weeks. Christopher states that he has established care with mental health provider, and he has started no new medications as his anxiety and depression are only mild Christopher states that he is starting to keep track of what triggers his headaches, and he started noticing that bright lights can be a trigger for him. 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 OBJECTIVE --------- Records reviewed from consulting providers Vitals: VSD - Detailed Vitals Date Vital Measurement Qualifiers 01/14/2024 15:30 Pulse 97 BP 129/87 POx (L/Min)(%) 98 NEURO EXAM Mental Status LOC: Alert Intellectual function: oriented, able to concentrate, attentive during meeting, short-term and long-term memory intact Language: Able to comprehend and express appropriately Praxis: able to perform tasks easily Cranial nerves Intact Motor System Muscle Bulk: no evidence of atrophy Muscle tone: No evidence of hypertonia or hypotonia Muscle Strength: Right side: shoulder abductors/adductors 5/5 elbow flexors/extensors 5/5 wrist flexors/extensors 5/5 finger abductors/adductors 5/5 hip flexors/extensors 5/5 knee flexors/extensors 5/5 ankle dorsiflexors 5/5 planter flexors 5/5 Left side: shoulder abductors/adductors 5/5 elbow flexors/extensors 5/5 wrist flexors/extensors 5/5 finger abductors/adductors 5/5 hip flexors/extensors 5/5 knee flexors/extensors 5/5 ankle dorsiflexors 5/5 planter flexors 5/5 Somatosensory Pain: Able to differentiate sharp sensation of pin Vibration: Normal with tuning fork Temperature: Able to differentiate cold and heat with side of tuning fork Proprioception: (Closed eye toe test or Romberg test) Intact Light touch: intact Reflexes -------- (0-4+) Brachioradialis (C5 and C6): 2+ Biceps (C5 and C6):2+ Triceps (C7 and C8):2+ Patellar (L2 -L4):2+ Achilles (L5-S2):2+ Plantar (babinski): absent Marquez: absent Coordination Rapid alternating movements: good rhythm up and down Zwiyio-afec-figapg: symmetrical Tbqe-dt-xhqt: able to do so smoothly Gait ---- Normal gait pattern Assistive devices: none Toe walking: deferred Heel walking: deferred ASSESSMENT & PLAN [place] presenting again for follow-up care for his unspecified headaches in the past. Was starting attention to the duration of his headaches, they last anywhere from 1 to 3 hours rather than previously auto 5 to 10 minutes. He states for abortive therapy he still responds well to Advil and aspirin, although he also states that if he can get his mind off of it they can go away to after about 3 hours. At this time the headaches still occur bilaterally, and unilaterally behind eyes, on the temples, as well as globally. 1. Unspecified daily headaches - diff dx includes chornic migraine without aura and chronic tension-type headache -[place] to stop riboflavin and magnesium -[place] to continue meeting with mental health provider, can consider CBT in the future -Pro[place]ta acupuncture did not work, to try full body acupuncture -Continue hydration -Continue exercising at least 15 to 30 minutes daily - to try butterbur or feverfew daily for 2 months at a time to lessen the frequeny of headaches -Should neither of these work, we will trial low-dose propranolol extended release -Continue ibuprofen or Advil or aspirin per recommendations of etxy-xoi-hacdrwj instructions -If not resolved by next appointment, can consider referral for CBT and physical therapy - Return to clinic in 6 months advised to call should his headaches change in -Frequency, duration, characteristic or intensity 2. mild anxiety and depression -Will continue to meet with mental health provider 3. Hypertension -Continue lisinopril 10 mg daily -[place] states that he takes half-way through the day -Should restart propranolol, will have to stop lisinopril. Education about next steps reviewed with patient. All additional questions answered during visit today Time spent with patient/caregiver: I personally spent 35 minutes today. this time includes preparing to see the patient (e.g. reviewing chart, lab results, medications, etc..), obtaining and/or reviewing history, performing medically necessary and appropriate examination/evaluation, counseling and educating the patient/caregiver, ordering medications, tests, or procedures, documenting in the patient record, and communicating results to the patient/caregiver. RTC: - Order placed, patient to be called for scheduling at later date Pt verbalized understanding and had no further questions during today's meeting Patient case discussed with Neurology staff /chey/ JAI Awan, MSN, RN Nurse Practitioner Signed: 03/10/2024 15:29 TIFFANY JACKMAN [facility]
--- OUTSIDE RECORDS SUMMARY | 2024-04-18 21:43 | XMS_ITS | Encounter Summary ---
Author Name [facility] Organization [facility] [place] Address [address] [place] [address] Care Team Providers Care Sales Agent Casualty Insurance Name Role Phone DANK MENDOSA Primary Care Provider Unavail able Selected Encounter This section includes the information on record at [place] for the Encounter. Date/Time Encounter Type Encounter Description Reason Pro vider Source Apr 14, 2024 11:22 AM Outpatient Encounter PRE-SURG EVAL IHE Encounter Template Text not used by [place] Plan of Treatment: Future Appointments (+ 6 months) and Future Tests (+/- 45 days) The Plan of Treatment section includes future care activities for the patient from all [place] treatmentfacilities. This section includes future appointments and future orders which are active, pending or scheduled. Future Appointments This section includes appointments that were scheduled to occur 6 months from the date of the Encounter, up to a maximum of 20 appointments. The data comes from all [place] treatment facilities. Appointment Date/Time Appointment Type Appointme nt Facility Name Apr 24, 2024 10:00 AM AMBULATORY - NONE [facility] Apr 24, 2024 01:00 PM AMBULATORY - MEDICINE [facility] Apr 29, 2024 06:45 AM AMBULATORY - NONE [facility] Apr 29, 2024 07:00 AM AMBULATORY - MEDICINE [facility] May 20, 2024 03:00 PM AMBULATORY - SURGERY [facility] May 22, 2024 10:30 AM AMBULATORY - NONE [facility] May 29, 2024 10:30 AM AMBULATORY - NONE [facility] Jun 16, 2024 03:00 PM AMBULATORY - MEDICINE [facility] Sep 08, 2024 03:00 PM AMBULATORY - MEDICINE [facility] Active, Pending, and Scheduled Orders This section includes a listing of several types of active, pending, and scheduled orders, including clinic medications orders, diagnostic test orders, procedure orders and consult orders; where the start date of the order is 45 days before the date of the Encounter or 45 days after the date of theEncounter. The data comes from all [facility] facilities. Test Date/Time Test Type Test Details Facility Name Apr 29, 2024 06:00 AM Laboratory - Chemi stry Order BASIC METABOLIC PANEL GREEN LI/HEP BLD/PLAS PLASMA PRE-OP [facility] Apr 29, 2024 06:00 AM Laboratory - Chemi stry Order PT/INR NEW (STL-MA) BLOOD PLASMA PRE-OP [facility] Apr 29, 2024 06:00 AM Laboratory - Chemi stry Order CBC BLOOD PRE-OP [facility] Encounter Notes: All associated encounter notes This section contains the clinical notes associated to the Encounter. Date/Time Encounter Note(s) Provider Source Apr 14, 2024 11:22 AM INTERNAL MEDICINE NOTE: LOCAL TITLE: MEDICINE PLANNED PRE-ADMISSION ST STANDARD TITLE: INTERNAL MEDICINE NOTE DATE OF NOTE: APR 14, 2024@11:22 ENTRY DATE: APR 14, 2024@11:22:36 AUTHOR: OSBALDO PERKINS EXP COSIGNER: URGENCY: STATUS: COMPLETED Provider requesting admission: Dr. Rubio Giraldo Indication for Admission: WPW & a-flutter ablation in EP lab Date of Admission: Apr Date of Procedure (if applicable or different from admission date): Apr Relevant Brief Medical History: pre-excitation syndrome; WPW/ A-flutter ablation with left sided pathway Expected duration of admission (observation -- less than 48 hours -- vs > 48 hours): 24 Requested Level of care (Floor vs Stepdown vs ICU): floor Recommendations to the Admitting Team: Services to Consult: . Timing of Consult (upon arrival vs next morning): . Anticipated med changes i.e. meds to start, hold, or modify based on the procedure including but not limited to anti-platelets, anti-coagulation, etc: per EP team and EP consult directions Labs/Imaging needed pre or post procedure: all pre testing ordered; post instruction per EP team NPO status/timing: NPo after midnight befor procedure Post-procedure counseling e.g. any restrictions to diet, activity, resuming anticoagulation: per EP team Post-procedure monitoring: telemetry /es/ OSBALDO PERKINS RN BSN CARDIAC INSPECTOR BRAKE LINING NURSE Signed: 04/14/2024 11:25 OSBALDO PERKINS [facility]
--- OUTSIDE RECORDS SUMMARY | 2024-04-18 21:43 | XMS_ITS | Encounter Summary ---
Author Name [facility] [place] Organization [facility] [place] Address [address] [place] [address] Care Team Providers Care Inspector Circuitry Negative Name Role Phone DANK MENDOSA Primary Care Provider Unavail able Selected Encounter This section includes the information on record at [place] for the Encounter. Date/Time Encounter Type Encounter Description Reason Provider Source Feb 28, 2024 01:00 PM PSYTX W PT 30 MINUTES PCMHI INDIV ICD-10-CM F34.1 Dysthymic disorder BLANCA ARNOLD Kayleigh Encounter Template Text not used by [place] Assessments - Encounter Diagnoses This section includes the primary and secondary diagnoses documented for the Encounter. Date/Time Primary/Secondary Diagnosis Diagnosis Name Provider Source Feb 28, 2024 01:33 PM PRIMARY Dysthymic disorder BLANCA ARNOLD [facility] Plan of Treatment: Future Appointments (+ 6 months) and Future Tests (+/- 45 days) The Plan of Treatment section includes future care activities for the patient from all [place] treatmentfacilities. This section includes future appointments and future orders which are active, pending or scheduled. Future Appointments This section includes appointments that were scheduled to occur 6 months from the date of the Encounter, up to a maximum of 20 appointments. The data comes from all [place] treatment facilities. Appointment Date/Time Appointment Type Appointme nt Facility Name Mar 05, 2024 01:00 PM AMBULATORY - NONE [facility] Mar 10, 2024 03:00 PM AMBULATORY - MEDICINE [facility] Mar 13, 2024 10:30 AM AMBULATORY - NONE [facility] Mar 20, 2024 09:00 AM AMBULATORY - NONE [facility] Mar 20, 2024 10:30 AM AMBULATORY - NONE [facility] Apr 24, 2024 10:00 AM AMBULATORY - NONE . [facility] Apr 24, 2024 01:00 PM AMBULATORY - MEDICINE [facility] Apr 29, 2024 06:45 AM AMBULATORY - NONE [facility] Apr 29, 2024 07:00 AM AMBULATORY - MEDICINE [facility] May 20, 2024 03:00 PM AMBULATORY - SURGERY [facility] Jay[facility] FL[facility] May 22, 2024 10:30 AM AMBULATORY - NONE [facility] May 29, 2024 10:30 AM AMBULATORY - NONE [facility] Jun 16, 2024 03:00 PM AMBULATORY - MEDICINE [facility] Active, Pending, and Scheduled Orders This section includes a listing of several types of active, pending, and scheduled orders, including clinic medications orders, diagnostic test orders, procedure orders and consult orders; where the start date of the order is 45 days before the date of the Encounter or 45 days after the date of theEncounter. The data comes from all [place] treatment facilities. Test Date/Time Test Type Test Details Facility Name Jan 17, 2024 09:07 AM Procedure Order CP ELECTRO PHYSIOLOGY STL CP ELECTROPHYSIOLOGY STL Proc Pipe [facility] Jan 29, 2024 11:17 AM Consult Order COMMUNITY CARE-SLEEP MANDIBULAR REPOSITIONING DEVICE STL Cons Pipe [facility] Social History: Smoking Status (Most current) and Tobacco Use (All prior to encounter date) This section includes the most current, and the historical, smoking and tobacco- related health factors from the [place] facility where the Encounter took place. Current Smoking Status This section includes the most current smoking, or tobacco-related health factor, from the [place] facility where the Encounter took place. Date/Time Current Smoking Status Comment Facil ity Sep 13, 2023 11:00 AM VA-TOBACCO NEVER USED [facility] Encounter Notes: All associated encounter notes This section contains the clinical notes associated to the Encounter. Date/Time Encounter Note(s) Provider Source Feb 28, 2024 01:04 PM PSYCHOLOGY OUTPATI ENT NOTE: LOCAL TITLE: PRIMARY CARE PSYCHOLOGY NOTE STL STANDARD TITLE: PSYCHOLOGY OUTPATIENT NOTE DATE OF NOTE: FEB 28, 2024@13:04 ENTRY DATE: FEB 28, 2024@13:04:19 AUTHOR: BLANCA ARNOLD COSIGNER: URGENCY: STATUS: COMPLETED NAME: PRINCESS SHUKLA DATE OF : Feb TIME SPENT WITH PATIENT: 30 minutes DIAGNOSIS BEING TREATED: Persistent Depressive Disorder CPT Code: 51669 NATURE OF ENCOUNTER: follow up visit SESSION FORMAT: [X] [id number] [ ] Video Telehealth [ ]Phone Confirmed Fonda's location and phone number for virtual appointment. [ ]Yes [X]N/A SESSION NUMBER: 2 RELEVANT HISTORICAL DEVELOPMENTS SINCE LAST CONTACT: - recent brief increase in health concerns for mother - scheduled for cardiac ablation in April - looking for home to buy INTERVENTION/TREATMENT PROVIDED [X] [place] [X] Shared decision-making regarding goals of care [X] Supportive Psychotherapy [X] Solution-Focused Psychotherapy [ ] Insight Oriented Psychotherapy [X] Cognitive Behavioral Therapy Skills [ ] Acceptance and Commitment Therapy Skills [ ] Interpersonal Therapy Skills [ ] Motivational Interviewing [ ] Culture-based Interventions [ ] Health Psychology Interventions [ ] Evidence Based Psychotherapy: [ ] Psychosocial Interventions [ ] Other: Description of Interventions Provided by Therapist: - Assessed sxs and fx'ing. Mood sxs remain slightly elevated. Emotions continue to feel muted frequently. Continues to deny clinically significant anxiety despite increased stress. Reviewed mood and stress/anxiety management strategies. - Discussed health concerns for mother in more detail. Assisted with processing related thoughts and feelings. Provided with empathetic and supportive listening and appropriate validation. Assisted with challenging identified distorted cognitions. Believes is managing this stressor without significant difficulty. - Discussed coping with cardiac issues/concerns. Fonda denied feeling overly stressed WRT pending procedure, noting that his recovery from procedure when it was performed in the past was uncomplicated. ASSESSMENT MEASURES USED: PHQ-9 not administered during today's encounter. Score = 7 (Mild range, Q#9=0) when administered on Jan 18. LAM-7 not administered during today's encounter. Score = 4 (Minimal/Non-Clinical range) when administered on Jan 18. [X]Functional/Symptom Assessment: Symptom(s)/Function(s) tracked by changes in frequency, intensity or duration since last visit: increased stress r/t mother's health and worrying about well- being of mother and younger sister, but denies any increase in mood or anxiety sxs ROS (by verbal report): Sleep: continues to nap to compensate for decreased sleep during the night d/t start time for duty day, but notes decreased frequency of needing nap, continues to deny any difficulty obtaining or maintaining sleep Interest: continues to experience decreased enjoyment in activities at times, but notes was able to enjoy many activities with family over the holidays Guilt: continues to deny Energy: remains decreased frequently Concentration: remains decreased at times Appetite: remains decreased at times Psychomotor: remains WNL upon observation and by report Collaboratively discussed outcomes related to assessment and treatment progress and measures will continue to be monitored. MEASURABLE TREATMENT GOALS FOR THIS EPISODE OF CARE: Goals were developed with Fonda using shared decision making. 1. GOAL/OBJECTIVES: decrease mood sxs and ensure managing stressors well PROGRESS TOWARDS GOAL: goal created during today's encounter RESPONSE TO INTERVENTIONS: Fonda's participation/engagement: [X]The Fonda participated actively in the current interventions. [ ]Other: The continues to consent to the current plan of care: Yes Comments: RISK ASSESSMENT: [X] NO CHANGE IN RISK FACTORS Related to Suicide or Homicide. Fonda did not report any current suicidal/homicidal ideation, plan, or intent. did not appear to be at imminent risk for suicide or homicide at this time and is considered sustainable at the current level of care. -CLINICAL JUDGMENT AND DISPOSITION: [X] In consideration of relevant risk and protective factors, the Fonda did NOT appear to be at imminent risk for suicide or homicide at this time and IS sustainable at the current level of care. -Comments: was asked directly and denied SI/HI, to include any current or recent active or passive ideation. Specifically, denied any current or recent thoughts, feelings, urges, or desires for self-harm or harm to others, as well as any engagement in planning, preparatory bxs, gestures, or attempts. ASSIGNED WORK: 1. Utilize recommended mood and stress/anxiety management strategies. 2. Engage in self-care COLLABORATIVE RECOMMENDATIONS/PLAN: Collaboratively discussed outcomes related to assessment and treatment progress. Based on this discussion: [X] No changes to plan of care. expressed agreement with therapy tasks and [id number] plan. RTC placed for f/u appt. /es/ BLANCA ARNOLD, PH.D. Clinical Psychologist; PCMSC Signed: 02/28/2024 13:52 BLANCA ARNOLD [facility]
--- OUTSIDE RECORDS SUMMARY | 2024-04-18 21:43 | XMS_ITS | Encounter Summary ---
Author Name [facility] [place] Organization [facility] [place] [facility] [place] Address [address] [place] [address] Care Team Providers Care Home Health Nurse Name Role Phone DANK MENDOSA Primary Care Provider Unavail able Selected Encounter This section includes the information on record at [place] for the Encounter. Date/Time Encounter Type Encounter Description Reason Provider Source Mar 20, 2024 09:00 AM HLTH&WB COACHING INDIV [facility] ICD-10-CM Z71.89 Other specified counseling ELVA WARD [facility] Encounter Template Text not used by [place] Assessments - Encounter Diagnoses This section includes the primary and secondary diagnoses documented for the Encounter. Date/Time Primary/Secondary Diagnosis Diagnosis Name Provider Source Mar 20, 2024 09:58 AM PRIMARY Other specified counseling ELVA WARD [facility] Plan of Treatment: Future Appointments (+ 6 months) and Future Tests (+/- 45 days) The Plan of Treatment section includes future care activities for the patient from all [place] treatmentfacilities. This section includes future appointments and future orders which are active, pending or scheduled. Future Appointments This section includes appointments that were scheduled to occur 6 months from the date of the Encounter, up to a maximum of 20 appointments. The data comes from all [place] treatment facilities. Appointment Date/Time Appointment Type Appointme nt Facility Name Apr 24, 2024 10:00 AM AMBULATORY - NONE [facility] Apr 24, 2024 01:00 PM [facility] Apr 29, 2024 06:45 AM AMBULATORY - NONE [facility] Apr 29, 2024 07:00 AM AMBULATORY - MEDICINE [facility] May 20, 2024 03:00 PM AMBULATORY - SURGERY . Jaylon FLORES [facility] May 22, 2024 10:30 AM AMBULATORY - NONE [facility] May 29, 2024 10:30 AM AMBULATORY - NONE [facility] Jun 16, 2024 03:00 PM AMBULATORY - MEDICINE [facility] Sep 08, 2024 03:00 PM AMBULATORY - MEDICINE [facility] Active, Pending, and Scheduled Orders This section includes a listing of several types of active, pending, and scheduled orders, including clinic medications orders, diagnostic test orders, procedure orders and consult orders; where the start date of the order is 45 days before the date of the Encounter or 45 days after the date of theEncounter. The data comes from all [facility]. Test Date/Time Test Type Test Details Facility Name Apr 29, 2024 06:00 AM Laboratory - Chemi stry Order BASIC METABOLIC PANEL GREEN LI/HEP BLD/PLAS PLASMA PRE-OP [facility] Apr 29, 2024 06:00 AM Laboratory - Chemi stry Order PT/INR NEW (STL-MA) BLOOD PLASMA PRE-OP [facility] Apr 29, 2024 06:00 AM Laboratory - Chemi stry Order CBC BLOOD PRE-OP [facility] Encounter Notes: All associated encounter notes This section contains the clinical notes associated to the Encounter. Date/Time Encounter Note(s) Provider Source Mar 20, 2024 09:51 AM INTEGRATIVE HEALTH NOTE: LOCAL TITLE: HEALTH AND WELLNESS COACHING STANDARD TITLE: INTEGRATIVE HEALTH NOTE DATE OF NOTE: MAR 20, 2024@09:51 ENTRY DATE: MAR 20, 2024@09:51:48 AUTHOR: ELVA WARD COSIGNER: URGENCY: STATUS: COMPLETED Health and Wellness Coaching HEALTH AND WELLNESS COACHING VISIT *Type of Visit: In-person *Session number: 2 Time spent with [place]: 30-60 minutes What really matters to PRINCESS SHUKLA. [place], [place], Purpose (MAP) Improve my heart health and find a house [place] was seen for Health and Wellness Coaching related to: Personal Development Surroundings [employer]ETERANS GOALS Long-Term S.M.A.R.T. Whole Health Goals: Other: Short-Term S.M.A.R.T. Goals/Action Steps: Christopher's S.M.A.R.T. goal(s): Christopher set a new S.M.A.R.T. goal(s) of: Goal 1: Heart procedure in April Goal 2: Continue house hunting to buy a place before my surgery. ADDITIONAL SESSION INFORMATION Additional information (e.g. Christopher's self-identified strengths, Values, Vision for the Future): 1 month check-in. Chritsopher reports that he is no longer wearing the heart monitor vest which has decreased the stress level that came with it. Christopher stated that he has started full-body acupuncture and has a second treatment today. Christopher stated that he is focusing on buying a house before heart procedure in April. Christopher agreed to 1 month follow-up. PLAN Plan: Arranged follow-up with : [place] agreed to follow-up by: In-person visit /chey/ ELVA WARD WHOLE HEALTH PAPER PRODUCTS INSPECTOR Signed: 03/20/2024 09:58 ELVA WARD [facility]
--- OUTSIDE RECORDS SUMMARY | 2024-04-18 21:43 | XMS_ITS | Encounter Summary ---
Author Name Department of Vetera Affairs [place] Organization [place] Address [address] [place] [address] Care Team Providers Care Certified Ophthalmic Technologist Name Role Phone DANK MENDOSA Primary Care Provider Unavail able Selected Encounter This section includes the information on record at [place] for the Encounter. Date/Time Encounter Type Encounter Description Reason Pro vider Source Nov 06, 2023 01:00 PM Outpatient Encounter PRIMARY CARE/MEDICINE [facility] Encounter Template Text not used by [place] Plan of Treatment: Future Appointments (+ 6 months) and Future Tests (+/- 45 days) The Plan of Treatment section includes future care activities for the patient from all [place] treatmentfacilities. This section includes future appointments and future orders which are active, pending or scheduled. Future Appointments This section includes appointments that were scheduled to occur 6 months from the date of the Encounter, up to a maximum of 20 appointments. The data comes from all [place] treatment facilities. Appointment Date/Time Appointment Type Appointme nt Facility Name Nov 26, 2023 02:30 PM AMBULATORY - MEDICINE [facility] Nov 27, 2023 09:45 AM AMBULATORY - MEDICINE [facility] Dec 03, 2023 02:00 PM AMBULATORY - MEDICINE [facility] Dec 24, 2023 01:00 PM AMBULATORY - NONE [facility] Dec 27, 2023 10:00 AM AMBULATORY - NONE [facility] Jan 10, 2024 02:00 PM AMBULATORY - MEDICINE [facility] Jan 14, 2024 03:30 PM AMBULATORY - MEDICINE [facility] Jan 31, 2024 10:00 AM AMBULATORY - NONE [facility] Feb 28, 2024 01:00 PM AMBULATORY - MEDICINE [facility] Mar 05, 2024 01:00 PM AMBULATORY - NONE [facility] Mar 10, 2024 03:00 PM AMBULATORY - MEDICINE [facility] Mar 13, 2024 10:30 AM AMBULATORY - NONE [facility] Mar 20, 2024 09:00 AM AMBULATORY - NONE [facility] Mar 20, 2024 10:30 AM AMBULATORY - NONE [facility] Apr 24, 2024 10:00 AM AMBULATORY - NONE [facility] Apr 24, 2024 01:00 PM AMBULATORY - MEDICINE [facility] Apr 29, 2024 06:45 AM AMBULATORY - NONE [facility] Apr 29, 2024 07:00 AM AMBULATORY - MEDICINE [facility] Lab Results: +/- 30 days of the encounter This section includes the Chemistry and Hematology Lab Results on record with [place] for the patient. Radiology Reports and Pathology Reports are provided separately, in subsequent sections. Lab Results This section contains the Chemistry/Hematology Results that were resulted 30 days before or 30 daysafter the date of the Encounter. Date/Time Source Result Type Result - Unit Interpretation Reference Range Comment Dec 03, 2023 02:24 PM [facility] ANTI-NUCLEAR ANTIBODY (STL-PB) Specimen Type: SERUM No comment entered. Ordering Provider: VIKRAM JACKMAN Report Released Date/Time: Dec 03, 2023 02:17 PM Reporting Lab: [address] [id number] Performing Lab: [address] [address] ANTI-NUCLEAR ANTIBODY (STL-PB) NEGATIVE Dec 03, 2023 02:24 PM [facility] RHEUMATOID FACTOR (STL) Specimen Type: SERUM No comment entered. Ordering Provider: VIKRAM JACKMAN Report Released Date/Time: Dec 03, 2023 02:17 PM Reporting Lab: [facility] [address] [place] [address] Performing Lab: [facility] [address] [address] RHEUMATOID FACTOR (STL) <15.0 0-29 Dec 03, 2023 02:24 PM [facility] ESR ISED(STL) Specimen Type: BLOOD No comment entered. Ordering Provider: VIKRAM JACKMAN Report Released Date/Time: Dec 03, 2023 02:17 PM Reporting Lab: [facility] [address] [place] [address] Performing Lab: [facility] [address] [place] [phone] ESR ISED(STL) 9 mm/h 0-14 Dec 03, 2023 02:24 PM [facility] CRP Specimen Type: PLASMA No comment entered. Ordering Provider: VIKRAM JACKMAN Report Released Date/Time: Dec 03, 2023 02:17 PM Reporting Lab: [facility] [address] [place] [address] Performing Lab: [facility] [address] [place] [id number] CRP 0.4 mg/dL 0-0.5 Social History: Smoking Status (Most current) and Tobacco Use (All prior to encounter date) This section includes the most current, and the historical, smoking and tobacco- related health factors from the [place] facility where the Encounter took place. Current Smoking Status This section includes the most current smoking, or tobacco-related health factor, from the [place] facility where the Encounter took place. Date/Time Current Smoking Status Comment Facil ity Sep 13, 2023 11:00 AM VA-TOBACCO NEVER USED [facility] Encounter Notes: All associated encounter notes This section contains the clinical notes associated to the Encounter. Date/Time Encounter Note(s) Provider Source Nov 06, 2023 01:52 PM ADMINISTRATIVE NOT E: LOCAL TITLE: ADMINISTRATIVE STL STANDARD TITLE: ADMINISTRATIVE NOTE DATE OF NOTE: NOV 06, 2023@13:52 ENTRY DATE: NOV 06, 2023@13:52:26 AUTHOR: DANK MENDOSA EXP COSIGNER: URGENCY: STATUS: COMPLETED Attempted to reach for [facility] to discuss consult. He did not attend. I called him. Unable to leave message. Please reschedule if he desired. /chey/ SEVERO BENOIT NURSE PRACTITIONER Signed: 11/06/2023 13:53 Receipt Acknowledged By: 11/06/2023 15:31 /chey/ KAELA NARANJO CORE MEASURES ABSTRACTOR DANK MENDOSA [facility]
--- OUTSIDE RECORDS SUMMARY | 2024-04-18 21:43 | XMS_ITS | Continuity of Care Document ---
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 It does not include entries that were removed or entered in error. 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 [id number]) Active Condition [facility] Jerardo-Parkinson -White pattern Active Condition Sep 17, 2023 Entered By: BROOKE ALMONTE Comment: unsuccessful ablation 07/2022, low risk pathway per cardiology f/u 09/2022 [facility] Obesity, unspecified Active Condition [facility] Pre-excitation syndrome Active Condition [facility] Essential (primary) hypertension Active Condition [facility] Diagnosis: ICD-10-CM Z04.89 Encounter for examination and observation for oth reasons Active Diagnosis [facility] Diagnosis: ICD-10-CM R51.9 Headache, unspecified Active Diagnosis [facility] Diagnosis: ICD-10-CM Z71.89 Other specified counseling Active Diagnosis [facility] Diagnosis: ICD-10-CM F34.1 Dysthymic disorder Active Diagnosis [facility] Diagnosis: ICD-10-CM I45.6 Pre-excitation syndrome Active Diagnosis [facility] Diagnosis: ICD-10-CM R00.[address] [facility] Diagnosis: ICD-10-CM G44.52 New daily persistent headache (NDPH) Active Diagnosis 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 Medication Details Route Status Patient Instructions Prescription Expires Prescription Number Last Dispense Date Ordering Provider Order Date Order Qty Source CHOLECALCIF JOHN 10MCG (400UNIT) TAB TAKE ONE TABLET BY MOUTH ONCE A DAY ORAL ACTIVE TIFFANY JACKMAN 2023 [facility] FISH OIL 1000MG (500MG DHA/EPA) CAP,ORAL TAKE BY MOUTH ONCE A DAY ORAL ACTIVE Azalia BAPTISTE 2023 [facility] LISINOPRIL 20MG TAB TAKE ONE-HALF TABLET BY MOUTH ONCE A DAY FOR HIGH BLOOD PRESSURE ORAL ACTIVE 2025 [id number] DANK MAGUIRE 2024 45 [facility] LISINOPRIL 20MG TAB TAKE ONE-HALF TABLET BY MOUTH ONCE A DAY FOR HIGH BLOOD PRESSURE ORAL DISCONT INUED 09/17/2024 [id number] ME DEVONTE ALMONTE 2023 45 [facility] lisinopril 5 mg oral tablet 180 tab(s), 0 total refill(s ), Soft Stop Discont inued 08/10/20222022 [facility] lisinopril 5 mg oral tablet See dose instruct ions in comments , Oral, Daily, T2 tabs PO daily., # 180 EA, 2 total refill(s ), Acute, Pharmacy : [facility] Oral (given by mouth) Complet ed 09/07/2023 3 2023 180.0 [facility] lisinopril 5 mg tablet See dose instruct ions in comments , # 180 EA, 2 total refill(s ), Acute Complet ed 09/06/2022 3 2022 180.0 Ambulat ory Pharmac y MAGNESIUM OXIDE 400MG TAB TAKE ONE TABLET BY MOUTH ONCE A DAY ORAL DISCONT INUED BY PROVIDE R 12/31/2024 [id number] TIFFANY JACKMAN 2023 120 [facility] MULTIVITAMI NS CAP/TAB TAKE ONE TABLET BY MOUTH ONCE A DAY ORAL ACTIVE Azalia BAPTISTE 2023 [facility] RIBOFLAVIN 100MG TAB TAKE ONE TABLET BY MOUTH ONCE A DAY HEADACHE TAKE WITH FOOD ORAL DISCONT INUED BY PROVIDE R 12/03/2024 [id number] TIFFANY JACKMAN 2023 100 [facility] Allergies, Adverse Reactions, Alerts Combined list of allergies from 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 It does not include entries that were removed or entered in error. Substance Category Reaction Severity Reaction type Status Date Reported Comments Source No Known Allergies Drug allergy (disorder) active 3 [facility] RIBOFLAVIN Propensity to adverse reactions to drug (finding) Headache MILD active 5 [facility] Immunizations Combined list of available immunizations from the 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 SARS-COV-2 (COVID-19) vaccine, vector non-replicati ng, recombinant spike protein-Ad26, preservative free, 0.5 mL 1 [id number] 212 Transcribed (TRS) complet ed SARS-COV- 2 (COVID-19 ) vaccine, vector non-repli cating, reaa nt spike protein-A d26, preservat jose free, 0.5 mL DoD influenza, injectable, quadrivalent- pf 2020 Jon young Arm [id number] 150 Seqirus complet ed influenza , injectabl e, quadrival ent-pf 05/24/20 Given Ambulat ory Pharmac y Influenza, injectable, quadrivalent, preservative free 1 2020 DOMENIC APODACA [id number] 150 [employer] (SEQ) complet ed Influenza , injectabl e, quadrival ent, preservat jose free DoD influenza, injectable, quadrivalent 2018 [id number] 82 158 [employer] complet ed influenza , injectabl e, quadrival ent 01/16/19 Given Ambulat ory Pharmac y influenza, injectable, quadrivalent, contains preservative 0 2018 [id number] 82 158 [employer] (SEQ) complet ed influenza , injectabl e, quadrival ent, contains preservat jose DoD influenza, injectable, quadrivalent 2018 [id number] 82 158 [employer] complet ed influenza , injectabl e, quadrival ent 01/15/19 Given Ambulat ory Pharmac y influenza, injectable, quadrivalent, contains preservative 0 2018 [id number] 82 158 [employer] (SEQ) complet ed influenza , injectabl e, quadrival ent, contains preservat jose DoD influenza, injectable, quadrivalent 2017 [id number] 1A 158 [employer] complet ed influenza , injectabl e, quadrival ent 02/06/18 Given Ambulat ory Pharmac y influenza, injectable, quadrivalent, contains preservative 0 2017 [id number] 1A 158 [employer] (SEQ) complet ed influenza , injectabl e, quadrival ent, contains preservat jose DoD anthrax vaccine 2017 [id number] [employer] complet ed anthrax vaccine 06/10/17 Given Ambulat ory Pharmac y anthrax vaccine 2 2017 [id number] [employer] [place] (MIP) complet ed anthrax vaccine DoD anthrax vaccine 2017 [id number] 24 [employer] complet ed anthrax vaccine 2/19/18 Given Ambulat ory Pharmac y anthrax vaccine 1 2017 [id number] [employer] [place] ([facility]) complet ed anthrax vaccine DoD typhoid Vi capsular polysaccharid e vac 2017 [id number] 101 sanofi pasteur complet ed typhoid Vi capsular polysacch aride vac 03/06/17 Given Ambulat ory Pharmac y typhoid Vi capsular polysaccharid e vaccine 2 2017 [id number] 101 Sanofi Pasteur (PMC) complet ed typhoid Vi capsular polysacch aride vaccine DoD influenza, seasonal, injectable 2016 [id number] 141 Unknown complet ed influenza , seasonal, injectabl e 01/01/17 Given Ambulat ory Pharmac y Influenza, seasonal, injectable 0 2016 [id number] 141 Other (OTH) complet ed Influenza , seasonal, injectabl e DoD influenza, injectable, quadrivalent- pf 2015 zzOmer ht Arm [id number] 150 GlaxoSmithKli ne complet ed influenza , injectabl e, quadrival ent-pf 01/30/16 Given Ambulat ory Pharmac y influenza, seasonal, injectable 2015 [id number] 141 GlaxoSmithKli ne complet ed influenza , seasonal, injectabl e 01/30/16 Given Ambulat ory Pharmac y Influenza, seasonal, injectable 0 2015 [id number] 141 SmithKline (SKB) complet ed Influenza , seasonal, injectabl e DoD Influenza, injectable, quadrivalent, preservative free 1 2015 CELESTINO JACINTO M T44G9 150 [employer]Kline (SKB) complet ed Influenza , injectabl e, quadrival ent, preservat jose free DoD influenza, seasonal, injectable 2014 [id number] 141 GlaxoSmithKli ne complet ed influenza , seasonal, injectabl e 12/07/14 Given Ambulat ory Pharmac y Influenza, seasonal, injectable 0 2014 [id number] 141 [employer]Kline (SKB) complet ed Influenza , seasonal, injectabl e DoD hepatitis B adult vaccine 2014 [id number] 43 Merck & Company Inc complet ed hepatitis B adult vaccine 07/22/14 Given Ambulat ory Pharmac y hepatitis B vaccine, adult dosage 3 2014 [id number] 43 Merck (MSD) complet ed hepatitis B vaccine, adult dosage DoD influenza, live, intranasal,qu adrivalent 2013 [id number] 149 [facility] t ed influenza , live, intranasa l,quadriv alent 12/24/13 Given Ambulat ory Pharmac y influenza, live, intranasal, quadrivalent 0 2013 [id number] 149 [employer] [place] [employer]. (MED) complet ed influenza , live, intranasa l, quadrival ent DoD poliovirus vaccine, inactivated 2013 [facility] Arm [id number] 10 sanofi pasteur complet ed polioviru s vaccine, inactivat ed 06/08/13 Given Ambulat ory Pharmac y typhoid Vi capsular polysaccharid e vac 2013 [facility] Arm [id number] 101 complet ed typhoid Vi capsular polysacch aride vac 06/08/13 Given Ambulat ory Pharmac y hepatitis B pediatric/ado lescent 2013 [facility] Arm [id number] 08 GlaxoSmithKli ne complet ed hepatitis B pediatric /adolesce nt 06/08/13 Given Ambulat ory Pharmac y yellow fever vaccine 2013 [facility] Arm [id number] 37 sanofi pasteur complet ed yellow fever vaccine 06/08/13 Given Ambulat ory Pharmac y hepatitis B vaccine, pediatric or pediatric/ado lescent dosage 1 2013 FABRICIO SKELTON [id number] 08 [facility] ([facility] complet ed hepatitis B vaccine, pediatric or pediatric /adolesce nt dosage DoD poliovirus vaccine, inactivated 1 2013 FABRIICO SKELTON M9944-0 10 Sanofi Pasteur (PMC) complet ed polioviru s vaccine, inactivat ed DoD yellow fever vaccine 0 2013 FABRICIO SKELTON [id number] 37 Sanofi Pasteur (PMC) complet ed yellow fever vaccine DoD typhoid Vi capsular polysaccharid e vaccine 1 2013 FABRICIO SKELTON J1201 101 [place] [employer] (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) complet ed typhoid Vi capsular polysacch aride vaccine DoD measles and rubella virus vaccine 0 2013 04 () Not Given measles and rubella virus vaccine DoD varicella virus vaccine 0 2013 21 () Not Given varicella virus vaccine DoD hepatitis A vaccine, adult dosage 0 2013 52 () Not Given hepatitis A vaccine, adult dosage DoD influenza, seasonal, injectable 2013 zBassem Arm 1314 1P 141 Medimmune Inc complet ed influenza , seasonal, injectabl e 05/05/13 Given Ambulat ory Pharmac y tetanus, diphtheria, acellular pertu is 2013 zBassem Arm [id number] 115 GlaxoSmithKli ne complet ed tetanus, diphtheri a, acellular pertussis 05/05/13 Given Ambulat ory Pharmac y meningococcal A,C,Y,W-135 (MCV4P) 2013 zzLef t Arm [id number] 114 sanofi pasteur complet ed meningoco ccal A,C,Y,W-1 35 (MCV4P) 05/05/13 Given Ambulat ory Pharmac y hepatitis B pediatric/ado lescent 2013 zzLef t Arm [id number] 08 GlaxoSmithKli ne complet ed hepatitis B pediatric /adolesce nt 05/05/13 Given Ambulat ory Pharmac y adenovirus vaccine, live 2013 [id number] 0 143 Unknown complet ed adenoviru s vaccine, live 05/05/13 Given Ambulat ory Pharmac y hepatitis B vaccine, pediatric or pediatric/ado lescent dosage 1 2013 COSMO RUCKER [id number] 08 [facility] (SKB) complet ed hepatitis B vaccine, pediatric or pediatric /adolesce nt dosage DoD meningococcal polysaccharid e (groups A, C, Y and W-135) diphtheria toxoid conjugate vaccine (MCV4P) 1 2013 COSMO RUCKER [id number] 114 Sanofi Pasteur (PMC) complet ed meningoco ccal polysacch aride (groups A, C, Y and W-135) diphtheri a toxoid conjugate vaccine (MCV4P) DoD tetanus toxoid, reduced diphtheria toxoid, and acellular pertu is vaccine, adsorbed 1 2013 COSMO RUCKER [id number] 115 [facility] (SKB) complet ed tetanus toxoid, reduced diphtheri a toxoid, and acellular pertussis vaccine, adsorbed DoD Influenza, seasonal, injectable 1 2013 COSMO RUCKER 1314 1P 141 [employer] (MED) complet ed Influenza , seasonal, injectabl e DoD Adenovirus, type 4 and type 7, live, oral 1 2013 COSMO RUCKER [id number] 0 143 Other (OTH) complet ed Adenoviru s, type 4 and type 7, live, oral [facility] Results Combined list of recent chemistry, hematology and other laboratory results from Department of Defense and Veterans Affairs, ranging from 15 months to all on record, depending upon the facility. Order Name Results Value Reference Range Date Interpretation Specimen Comments Source ANTI-NUC LEAR ANTIBODY (STL-PB) NUCLEAR AB [PRESENCE] IN SERUM NEGATIVE 12/02 Specimen Type: SERUM No comment entered. Ordering Provider: VIKRAM JACKMAN Report Released Date/Time: Dec 03, 2023 02:17 PM Reporting Lab: [place] [address] Performing Lab: [address] RHEUMATO ID FACTOR (STL) RHEUMATOID FACTOR [UNITS/VOL UME] IN SERUM OR PLASMA <15.0 0 - 29 12/02 Specimen Type: SERUM No comment entered. Ordering Provider: VIKRAM JACKMAN Report Released Date/Time: Dec 03, 2023 02:17 PM Reporting Lab: [facility] [address] [place] [address] Performing Lab: [place] [id number] ESR ISED(STL ) ERYTHROCYT E SEDIMENTAT ION RATE 9 mm/h 0 - 14 12/02 Specimen Type: BLOOD No comment entered. Ordering Provider: VIKRAM JACKMAN Report Released Date/Time: Dec 03, 2023 02:17 PM Reporting Lab: [place] [address] Performing Lab: [address] CRP C REACTIVE PROTEIN [PRESENCE] IN SERUM OR PLASMA 0.4 mg/dL 0 - 0.5 12/02 Specimen Type: PLASMA No comment entered. Ordering Provider: VIKRAM JACKMAN Report Released Date/Time: Dec 03, 2023 02:17 PM Reporting Lab: [facility] [address] [place] [address] Performing Lab: [address] [address] [facility] VITAMIN D, 25-HYDRO XY 25-HYDROXY VITAMIN D3 [MASS/VOLU ME] IN SERUM OR PLASMA 24.1 ng/mL 30 - 96 09/16 L Specimen Type: SERUM No comment entered. Ordering Provider: ELI ALMONTE ASTER Report Released Date/Time: Sep 17, 2023 01:09 PM Reporting Lab: [address] [address] Performing Lab: [address] [phone] [place] [address] TSH W/ REFLEX FT4 (STL) THYROTROPI N [UNITS/VOL UME] IN SERUM OR PLASMA 0.727 u[IU]/mL 0.47 - 5 09/16 Specimen Type: PLASMA No comment entered. Ordering Provider: ELI ALMONTE ASTER Report Released Date/Time: Sep 17, 2023 01:09 PM Reporting Lab: [address] [address] Performing Lab: [address] [phone] [place] [address] BASIC METABOLI C PANEL CREATININE [MASS/VOLU ME] IN SERUM OR PLASMA 1.01 mg/dL 0.7 - 1.3 09/16 Specimen Type: PLASMA Comment: LDL calculation invalid when Triglycerid e exceeds 250 mg/dl Ordering Provider: ELI ALMONTE ASTER Report Released Date/Time: Sep 17, 2023 01:09 PM Reporting Lab: [address] [address] Performing Lab: [address] [phone] [place] [address] BASIC METABOLI C PANEL UREA NITROGEN [MASS/VOLU ME] IN SERUM OR PLASMA 11.7 mg/dL 9.0 - 25.0 09/16 Specimen Type: PLASMA Comment: LDL calculation invalid when Triglycerid e exceeds 250 mg/dl Ordering Provider: ELI ALMONTE ASTER Report Released Date/Time: Sep 17, 2023 01:09 PM Reporting Lab: [address] [address] Performing Lab: [address] [phone] [place] [address] BASIC METABOLI C PANEL GLUCOSE [MASS/VOLU ME] IN SERUM OR PLASMA 94 mg/dL 72 - 99 09/16 Specimen Type: PLASMA Comment: LDL calculation invalid when Triglycerid e exceeds 250 mg/dl Ordering Provider: ELI ALMONTE ASTER Report Released Date/Time: Sep 17, 2023 01:09 PM Reporting Lab: [address] [address] Performing Lab: [address] [phone] [place] [address] BASIC METABOLI C PANEL SODIUM [MOLES/VOL UME] IN SERUM OR PLASMA 138 meq/L 136 - 145 09/16 Specimen Type: PLASMA Comment: LDL calculation invalid when Triglycerid e exceeds 250 mg/dl Ordering Provider: ELI ALMONTE ASTER Report Released Date/Time: Sep 17, 2023 01:09 PM Reporting Lab: [facility] [address] [place] [phone] Performing Lab: [address] [address] [facility] BASIC METABOLI C PANEL POTASSIUM [MOLES/VOL UME] IN SERUM OR PLASMA 4.0 meq/L 3.5 - 5 09/16 Specimen Type: PLASMA Comment: LDL calculation invalid when Triglycerid e exceeds 250 mg/dl Ordering Provider: ELI ALMONTE ASTER Report Released Date/Time: Sep 17, 2023 01:09 PM Reporting Lab: [facility] [address] [facility] [address] Performing Lab: [facility] [address] [facility] [phone] [place] [address] BASIC METABOLI C PANEL CHLORIDE [MOLES/VOL UME] IN SERUM OR PLASMA 103 meq/L 98 - 107 09/16 Specimen Type: PLASMA Comment: LDL calculation invalid when Triglycerid e exceeds 250 mg/dl Ordering Provider: ELI ALMONTE ASTER Report Released Date/Time: Sep 17, 2023 01:09 PM Reporting Lab: [facility] [address] [facility] [address] Performing Lab: [facility] [address] [facility] [address] [facility] BASIC METABOLI C PANEL CARBON DIOXIDE, TOTAL [MOLES/VOL UME] IN SERUM OR PLASMA 23 meq/L 22 - 31 09/16 Specimen Type: PLASMA Comment: LDL calculation invalid when Triglycerid e exceeds 250 mg/dl Ordering Provider: ELI ALMONTE ASTER Report Released Date/Time: Sep 17, 2023 01:09 PM Reporting Lab: [facility] [address] Performing Lab: [place] [address] [facility] [address] [facility] BASIC METABOLI C PANEL CALCIUM [MASS/VOLU ME] IN SERUM OR PLASMA 10.2 mg/dL 8.4 - 10.4 09/16 Specimen Type: PLASMA Comment: LDL calculation invalid when Triglycerid e exceeds 250 mg/dl Ordering Provider: ELI ALMONTE ASTER Report Released Date/Time: Sep 17, 2023 01:09 PM Reporting Lab: [facility] [address] [facility] [address] Performing Lab: [facility] [address] [facility] [address] [facility] BASIC METABOLI C PANEL GLOMERULAR FILTRATION RATE/1.73 SQ M.PREDICTE D [VOLUME RATE/AREA] IN SERUM, PLASMA OR BLOOD BY CREATININE -BASED FORMULA (CKD-EPI 2020) 103.9 60 09/16 Specimen Type: PLASMA Comment: LDL calculation invalid when Triglycerid e exceeds 250 mg/dl Ordering Provider: ELI ALMONTE ASTER Report Released Date/Time: Sep 17, 2023 01:09 PM Reporting Lab: [place] [address] [facility] [address] Performing Lab: [address] [address] [facility] LIPID PANEL (STL) CHOLESTERO L [MASS/VOLU ME] IN SERUM OR PLASMA 261 mg/dL 0 - 200 09/16 H Specimen Type: PLASMA Comment: LDL calculation invalid when Triglycerid e exceeds 250 mg/dl Ordering Provider: ELI ALMONTE ASTER Report Released Date/Time: Sep 17, 2023 01:09 PM Reporting Lab: [address] [address] Performing Lab: [place] [address] [facility] [address] [facility] LIPID PANEL (STL) TRIGLYCERI DE [MASS/VOLU ME] IN SERUM OR PLASMA 307 mg/dL 0 - 150 09/16 H Specimen Type: PLASMA Comment: LDL calculation invalid when Triglycerid e exceeds 250 mg/dl Ordering Provider: ELI ALMONTE ASTER Report Released Date/Time: Sep 17, 2023 01:09 PM Reporting Lab: [facility] [address] [place] [phone] Performing Lab: [address] [address] [facility] LIPID PANEL (STL) CHOLESTERO L IN LDL [MASS/VOLU ME] IN SERUM OR PLASMA BY DIRECT ASSAY 198 mg/dL 100 09/16 Specimen Type: PLASMA Comment: LDL calculation invalid when Triglycerid e exceeds 250 mg/dl Ordering Provider: ELI ALMONTE ASTER Report Released Date/Time: Sep 17, 2023 01:09 PM Reporting Lab: [facility] [address] [facility] [address] Performing Lab: [place] [address] [facility] [phone] [place] [address] LIPID PANEL (STL) CHOLESTERO L IN LDL [MASS/VOLU ME] IN SERUM OR PLASMA BY CALCULATIO N commentm g/dL 09/16 Specimen Type: PLASMA Comment: LDL calculation invalid when Triglycerid e exceeds 250 mg/dl Ordering Provider: ELI ALMONTE ASTER Report Released Date/Time: Sep 17, 2023 01:09 PM Reporting Lab: [address] [address] Performing Lab: [place] [address] [facility] [address] [facility] LIPID PANEL (STL) CHOLESTERO L IN HDL [MASS/VOLU ME] IN SERUM OR PLASMA 39 mg/dL 40 09/16 L Specimen Type: PLASMA Comment: LDL calculation invalid when Triglycerid e exceeds 250 mg/dl Ordering Provider: ELI ALMONTE ASTER Report Released Date/Time: Sep 17, 2023 01:09 PM Reporting Lab: [facility] [address] Performing Lab: [place] [address] [facility] [address] [facility] HGA1C HEMOGLOBIN A1C/HEMOGL OBIN.TOTAL IN BLOOD 5.5 4.0 - 6.0 09/16 Specimen Type: BLOOD No comment entered. Ordering Provider: ELI ALMONTE ASTER Report Released Date/Time: Sep 17, 2023 01:09 PM Reporting Lab: [facility] [address] [place] [phone] Performing Lab: [address] [address] [facility] Hematolo gy Neutrophil % Auto 66.4 % 35.0 - 70.0 08/[address] [place] [address] Hematolo gy Neutro Absolute 7.53 10^3/uL 1.50 - 8.76398 08/[address] [place] [address] Hematolo gy Basophil % Auto 0.7 % 0.0 - 2.0 08/[address] [place] [address] Hematolo gy nRBC % Auto 0.0 % 08/[address] [place] [address] Hematolo gy Eosinophil % Auto 1.2 % 0.0 - 6.0 08/[address] [place] [address] Hematolo gy Imm. Granulocyt e % 0.4 % 0.0 - 1.7 08/[address] [place] [address] Hematolo gy nRBC Absolute <0.010 10^3/uL 0.000 - [phone] 08/[address] [place] [address] Hematolo gy Imm. Granulocyt e Absolute 0.040 10^3/uL 0.000 - 0.563281 08/[address] [place] [address] Hematolo gy Stokes Absolute 0.79 10^3/uL 0.00 - 0.85906 08/[address] [place] [address] Hematolo gy Lymph Absolute 2.76 10^3/uL 1.00 - 3.28337 08/[address] [place] [address] Hematolo gy Monocyte % Auto 7.0 % 0.0 - 12.0 08/[address] [place] [address] Hematolo gy Eos Absolute 0.14 10^3/uL 0.00 - 0.73699 08/[address] [place] [address] Hematolo gy Lymphocyte % Auto 24.3 25.0 - 45.0 08/[address] [place] [address] Hematolo gy Baso Absolute 0.08 10^3/uL 0.00 - 0.25642 08/[address] [place] [address] Chemistr y eGFR CKD EPI 120 mL/min 08/06 Interpretiv e Data: Estimated Glomerular Filtration Rate (eGFR) calculated using the 2021 Chronic Kidney Disease-Epi demiology (CKD-EPI) Collaborati on creatinine equation; units of measure are mL/min/1.73 m2. Results are only valid for adults (>=18 years) whose serum creatinine is in steady state. eGFR calculation s are not valid for patients with acute kidney injury and for patients on dialysis. Creatinine- based estimates of kidney function may also be inaccurate in patients with reduced creatinine generation due to decreased muscle mass (e.g., malnutritio n, severe hypoalbumin emia, sarcopenia, chronic neuromuscul ar disease, amputations , severe heart failure or liver disease) and in patients with increased creatinine generation due to increased muscle mass (e.g., muscle builders, anabolic steroids) or increased dietary intake. CKD is diagnosed based on abnormaliti es of kidney structure or function, present for >3 months, with implication s for health and disease. CKD is classified and staged based on cause, eGFR and albuminuria (quantified as urine albumin to creatinine ratio). An eGFR >60 mL/min/1.73 m2 in the absence of increased urine albumin excretion or structural abnormaliti es does not represent CKD. eGFR provides only an estimate of measured GFR within +/- 30% for most patients. As mentioned, nutritional status and muscle mass, among many factors, may lead to inaccuracy in the estimate. Consider ordering the creatinine- cystatin C panel if better accuracy is needed for clinical decision-mukund saucedo. eGFR (mL/min/1.7 3 m2) CKD stage Interpretat ion >=90 G1 Normal 60-89 G2 Mild decrease 45-59 G3A Mild to moderate decrease 30-44 G3B Moderate to severe decrease 15-29 G4 Severe decrease <15 G5 Kidney failure [address] [place] [address] Coagulat ion PT 13.1 s 11.7 - 14.1 08/06 N Interpretiv e Data: ORAL ANTICOAGULA NT THERAPY Correlative ranges: ORAL THERAPY INR RANGE PT RANGE in Seconds Low Intensity 1.5 - 2.0 17.9 - 22.2 Moderate Intensity 2.0 - 3.0 22.2 - 30.3 High Intensity 1 2.5 - 3.5 26.4 - 34.1 High Intensity 2 3.0 - 4.0 30.3 - 37.7 Critical Value >4.5 >[address] [place] [address] Coagulat ion PTT 27.6 s 23.2 - 37.5 08/06 N Interpretiv e Data: Patients receiving heparin require monitoring of the anticoagula nt effect to insure therapeutic levels and reduce the risk of bleeding. An APTT value that is 1.5 times the established normal mean value (29.1 seconds) obtained 6 hours after the last dose, is adequate to minimize the risk of recurrent thrombosis. Monitoring studies should be performed at least as frequently as every 24 hours. This recommendat ion is made as a guide to therapy only. [address] [place] [address] Coagulat ion INR 1.00 08/06 Interpretiv e Data: INDICATION INR Prophylaxis of venous thrombosis (high risk surgery) 2.0 - 3.0 Treatment of venous thrombosis 2.0 - 3.0 Treatment of pulmonary embolism 2.0 - 3.0 Prevention of systemic embolism Tissue heart valves Acute myocardial infarction (to prevent systemic embolism) 2.0 - 3.0 Valvular heart disease Atrial fibrillatio n Recurrent systemic embolism Mechanical prosthetic valves (high risk) 2.5 - 3.5 Bileaflet mechanical valve in aortic position 2.0 - 3.0 Post myocardial infarction 2.5 - 3.[address] [place] [address] Chemistr y CO2 26.4 meq/L 22.0 - 29.0 08/[address] [place] [address] Chemistr y Calcium 10.3 mg/dL 8.4 - 10.2 08/[address] [place] [address] Chemistr y BUN 11.0 mg/dL 8.9 - 20.6 08/[address] [place] [address] Chemistr y Glucose Lvl 92 mg/dL 70 - 99 08/[address] [place] [address] Chemistr y Sodium 138 mmol/L 136 - 145 08/[address] [place] [address] Chemistr y AGAP 9 08/[address] [place] [address] Chemistr y BUN/Creat Ratio 12.20 ratio 08/[address] [place] [address] Chemistr y Chloride 103 mmol/L 98 - 107 08/[address] [place] [address] Chemistr y Potassium Lvl 4.0 mmol/L 3.5 - 4.5 08/[address] [place] [address] Chemistr y Creatinine Level 0.90 mg/dL 0.70 - 1.30 08/[address] [place] [address] Hematolo gy MCV 87.1 fL 80.0 - 100.0 08/[address] [place] [address] Hematolo gy MCH 28.8 pg 26.0 - 35.0 08/[address] Hematolo gy MPV 10.0 fL 6.3 - 10.5 08/[address] Hematolo gy Hemoglobin 14.7 g/dL 13.0 - 17.5 08/[address] Hematolo gy Hematocrit 44.5 % 39.0 - 53.0 08/[address] Hematolo gy RDW SD 40.4 35.1 - 43.9 08/[address] Hematolo gy RDW CV 12.7 % 11.6 - 14.4 08/[address] Hematolo gy WBC 11.34 10^3/uL 4.50 - 11.69417 08/[address] Hematolo gy Platelets 339 10^3/uL 140 - [id number] 08/[address] Hematolo gy RBC 5.11 10^6/uL 3.90 - 5.97530 08/[address] Hematolo gy MCHC 33.0 g/dL 32.0 - 36.0 08/[address] Vital Signs Combined list of inpatient and outpatient Vital Signs from Department of Defense and Veterans Affairs, ranging from 12 months to all on record, depending upon the facility. Vital Sign Value Date Comments Source Respiratory Rate 18 br/min 08/06/2022 15:24:[address] [place] [address] Mean Arterial Pressure, Calc 91 mm[Hg] 08/06/2022 15:24:[address] [place], [place] [address] Peripheral Pulse Rate 108 bpm 08/06/2022 15:24:00 [facility] Systolic Blood Pressure 128 mm[Hg] 08/15/19 19:45:00 [facility] Diastolic Blood Pressure 82 mm[Hg] 023 19:45:00 [facility] Heart Rate Monitored 104 bpm 08/14/2022 19:45:00 [facility] Systolic Blood Pressure 107 mm[Hg] 08/15/19 17:00:00 [facility] Diastolic Blood Pressure 67 mm[Hg] 023 17:00:00 [facility] Heart Rate Monitored 102 bpm 08/14/2022 17:00:00 [facility] Respiratory Rate 16 br/min 08/14/2022 16:45:00 [facility] Heart Rate Monitored 98 bpm 08/14/2022 16:45:00 [facility] Mean Arterial Pressure, Calc 101 mm[Hg] 06/25/2022 12:28:00 [facility] Peripheral Pulse Rate 103 bpm 06/25/2022 12:28:00 [facility] Peripheral Pulse Rate 110 bpm 08/21/2022 18:00:00 [facility] Temperature Oral 37.1 Carole 08/21/2022 18:00:00 [facility] Peripheral Pulse Rate 88 bpm 08/14/2022 12:03:00 [facility] Temperature Oral 36.8 Carole 08/14/2022 12:03:00 [facility] Respiratory Rate 12 br/min 08/14/2022 12:03:00 [facility] Mean Arterial Pressure, Calc 96 mm[Hg] 08/14/2022 12:03:00 [facility] Peripheral Pulse Rate 94 bpm 08/14/2022 13:16:00 [facility] Respiratory Rate 16 br/min 08/14/2022 13:16:00 [facility] Systolic Blood Pressure 122 mm[Hg] 08/15/19 23 20:45:00 [facility] Diastolic Blood Pressure 78 mm[Hg] 023 20:45:00 [facility] Peripheral Pulse Rate 126 bpm 08/21/2022 17:30:00 [facility] Respiratory Rate 18 br/min 08/21/2022 17:30:00 [facility] BP Site Left arm 08/21/2022 17:30:00 [facility] Systolic Blood Pressure 129 mm[Hg] 08/22/19 17:30:00 [facility] Diastolic Blood Pressure 91 mm[Hg] 023 17:30:00 [facility] Mean Arterial Pressure, Calc 104 mm[Hg] 08/21/2022 17:30:00 [facility] Blood Pressure Manual Automatic 08/21/2022 17:30:00 [facility] Mean Arterial Pressure, Calc 98 mm[Hg] 05/30/2022 12:58:00 [facility] Peripheral Pulse Rate 98 bpm 05/30/2022 12:58:00 [facility] Systolic Blood Pressure 112 mm[Hg] 08/15/19 17:45:00 [facility] Diastolic Blood Pressure 73 mm[Hg] 023 17:45:00 [facility] Respiratory Rate 18 br/min 08/14/2022 17:45:00 [facility] Heart Rate Monitored 100 bpm 08/14/2022 17:45:00 [facility] Systolic Blood Pressure 108 mm[Hg] 08/15/19 17:15:00 [facility] Diastolic Blood Pressure 68 mm[Hg] 023 17:15:00 [facility] Systolic Blood Pressure 136 mm[Hg] 10/12/19 23 12:48:00 [facility] Diastolic Blood Pressure 88 mm[Hg] 023 12:48:00 [facility] Mean Arterial Pressure, Calc 104 mm[Hg] 10/11/2022 12:48:00 [facility] Peripheral Pulse Rate 91 bpm 10/11/2022 12:48:00 [facility] BP Site Right arm 10/11/2022 12:48:00 [facility] Respiratory Rate 16 br/min 10/11/2022 12:48:00 [facility] Blood Pressure Manual Automatic 10/11/2022 12:48:00 [facility] Mean Arterial Pressure, Calc 91 mm[Hg] 08/06/2022 14:51:00 [facility] Peripheral Pulse Rate 108 bpm 08/06/2022 14:51:00 [facility] Respiratory Rate 18 br/min 08/06/2022 14:51:00 [facility] BP Site Right arm 08/06/2022 14:51:00 [facility] Blood Pressure Manual Automatic 08/06/2022 14:51:00 [facility] Systolic Blood Pressure 127 mm[Hg] 08/15/19 23 19:15:00 [facility] Diastolic Blood Pressure 80 mm[Hg] 023 19:15:00 [facility] Heart Rate Monitored 112 bpm 08/14/2022 19:15:00 [facility] Heart Rate Monitored 91 bpm 08/14/2022 16:30:00 [facility] Respiratory Rate 18 br/min 08/14/2022 16:30:00 [facility] Peripheral Pulse Rate 97 bpm 06/26/2022 13:36:00 [facility] Mean Arterial Pressure, Calc 89 mm[Hg] 06/26/2022 13:36:00 [facility] Temperature Oral 37 Carole 06/26/2022 13:36:00 [facility] BP Site Right arm 06/26/2022 13:36:00 [facility] Systolic Blood Pressure 118 mm[Hg] 08/15/19 23 18:45:00 [facility] Diastolic Blood Pressure 75 mm[Hg] 023 18:45:[address] [place] [address] Heart Rate Monitored 99 bpm 08/14/2022 18:45:[address] [place] [address] Respiratory Rate 16 br/min 08/14/2022 16:00:[address] [place] [address] Heart Rate Monitored 102 bpm 08/14/2022 16:00:[address] [place] [address] Heart Rate Monitored 106 bpm 08/14/2022 18:15:00 [facility] Systolic Blood Pressure 113 mm[Hg] 08/15/19 18:15:00 [facility] Diastolic Blood Pressure 65 mm[Hg] 023 18:15:[address] [place] [address] Temperature Oral 37 Carole 04/27/2022 15:49:00 [facility] Mean Arterial Pressure, Calc 87 mm[Hg] 04/27/2022 15:49:00 [facility] BP Site Right arm 04/27/2022 15:49:00 [facility] Blood Pressure Manual Automatic 04/27/2022 15:49:00 [facility] SYSTOLIC BLOOD PRESSURE 129 01/14/20 24 15:30:00 [facility] DIASTOLIC BLOOD PRESSURE 87 024 15:30:00 [facility] PULSE OXIMETRY 98 01/14/2024 15:30:00 [facility] PULSE 97 01/14/2024 15:30:00 [facility] SYSTOLIC BLOOD PRESSURE 118 11/26/19 24 14:23:04 [facility] DIASTOLIC BLOOD PRESSURE 78 14:23:04 [facility] PULSE OXIMETRY 98 11/26/2023 14:23:04 [facility] WEIGHT 187.6 11/26/2023 14:23:04 [facility] BMI 30 kg/m2 11/26/2023 14:23:04 [facility] PAIN 0 11/26/2023 14:23:04 [facility] TEMPERATURE 97.8 11/26/2023 14:23:04 [facility] PULSE 88 11/26/2023 14:23:04 [facility] RESPIRATION 16 11/26/2023 14:23:04 [facility] SYSTOLIC BLOOD PRESSURE 115 09/17/19 12:38:01 [facility] DIASTOLIC BLOOD PRESSURE 71 024 12:38:01 [facility] PULSE OXIMETRY 96 09/17/2023 12:38:01 [facility] WEIGHT 196 09/17/2023 12:38:01 [facility] BMI 32 kg/m2 09/17/2023 12:38:01 [facility] PAIN 0 09/17/2023 12:38:01 [facility] HEIGHT 66 09/17/2023 12:38:01 [facility] TEMPERATURE 98.9 09/17/2023 12:38:01 [facility] PULSE 99 09/17/2023 12:38:01 [facility] RESPIRATION 18 09/17/2023 12:38:01 [facility] Encounters Combined list of: 1) Encounters from Department of Veterans Affairs facilities going backup to the last 18 months, not all VA inpatient encounters are included; 2) Encounters from the Department of Defense facilities going backup to 280 months. Location Location Details Encounter Type Encounter Number Reason For Visit Attending Provider ADM Date DC Date Status Disposition Source [facility](Au diology [facility] 1523) OUTPATIENT [id number] WALLY DRAKE 05/04 Released w/o Limitations [facility]( Audiolo gy [facility] 1523) [facility] Male) OUTPATIENT [id number] MARIA TERESA KAUFMAN 05/06 Released w/o Limitations [facility] Male) [facility] [place](Op tometry [facility] 1523) OUTPATIENT [id number] TELMA MARTIN 05/07 Released w/o Limitations [facility]( Optomet ry [facility] 1523) [facility](We ekend [place] [facility]ick [facility] 1007) OUTPATIENT [id number] Notes Entered by: Angle LAO 09 May 2013 0747 ------- ------- ------- ------- -- MILLI Deras 05/09 Released with Work/Duty Limitations [facility]( Mil Sick Call 1007) [facility](Co urage (White) 1007) OUTPATIENT [id number] Notes Entered by: Ty LEON 18 May 2013 0844 ------- ------- ------- ------- -- Cold SKYRA Craig 05/18 Released with Work/Duty Limitations [facility]( [place] ([place]) 1007) [facility](Co urage (White) 1007) OUTPATIENT [id number] Notes Entered by: Carlos Alberto DIXON 26 May 2013 0634 ------- ------- ------- ------- -- cold COSMO Nicole 05/26 Released with Work/Duty Limitations [facility]( [place] ([place]) 1007) [facility] [place](Op erational Medicine [facility] 237) OUTPATIENT [id number] Notes Entered by: LIZANDRO SANTOS 21 Oct 2013 1454 ------- ------- ------- ------- -- TYPE 2 VIVEK MARIE 10/21 Released w/o Limitations [facility]( Operati onal Medicin e [facility] 237) Telma A [facility] 237) OUTPATIENT [id number] FFD kadie DENISEANIL GONCALVES Kayleigh 04/14 Released w/o Limitations [facility]ma [facility]( Student Medicin e [facility] 237) [place] [facility] [facility] OUTPATIENT [id number] Notes Entered by: KATIE FRANCO 04 Oct 2014 1419 ------- ------- ------- ------- -- Hearing Test MARIA TERESA FRANCO 10/04 [place]o Limitations [place] [facility] [place] [facility] [facility] [place] OUTPATIENT [id number] Notes Entered by: CAMPBELL CANO 05 Oct 2014 0828 ------- ------- ------- ------- -- hearing test CAMPBELL CANO 10/05 [place]ased w/o Limitations [place] [facility](He aring Conserv [facility]ion - [facility]) [facility](Hearing Cons [place]) OUTPATIENT [id number] BETO HART 05/03 Released w/o Limitations [facility](Hea ring Cons [place]) [facility](Emergen cy Medicine NM[facility]) OUTPATIENT [id number] CARLOTTA RUSHING 06/29 Released w/o Limitations [facility](Sofia rgency Medicin e [facility]) [facility] OUTPATIENT [id number] Theater Provider 11/24 Released w/o Limitations [facility] OUTPATIENT [id number] Theater Provider 12/12 Released w/o Limitations [facility](Gen Surgery/P rocto Clinic NMCP) OUTPATIENT [id number] JORGE Alex 01/01 Released w/o Limitations [facility](Gen Surgery /Procto Clinic [facility]) [facility](Gen Surgery/P rocto Clinic [facility]) OUTPATIENT [id number] Notes Entered by: MARS THOMAS 05 Jan 2016 1306 ------- ------- ------- ------- -- Pre Op FREDA Martínez 01/04 Released w/o Limitations [facility](Gen Surgery /Procto Clinic [facility]) [facility]) OUTPATIENT [id number] Notes Entered by: LYNDA DAVIS 13 Jan 2016 1037 ------- ------- ------- ------- -- KAREN Lawler 01/12 Released w/o Limitations [facility] ) [facility](Gen Surgery/P rocto Clinic NMCP) OUTPATIENT [id number] f/u s/p pilonid al cystect veronika [id number] LUTHER SILVA 01/16 Released w/o Limitations [facility](Gen Surgery /Procto Clinic [facility]) [facility](Immuniz ations [facility]) OUTPATIENT [id number] Notes Entered by: ANIVAL NEGRETE 30 Jan 2016 1316 ------- ------- ------- ------- -- CELESTINO Fox 01/29 Released w/o Limitations [facility](Imm unizati ons [facility] ) [facility](Gen Surgery/P rocto Clinic [facility]) OUTPATIENT [id number] F/U PILONID AL CYST JORGE FAY 02/02 Released w/o Limitations [facility](Gen Surgery /Procto Clinic [facility]) [facility](Gen Surgery/P rocto Clinic NMCP) OUTPATIENT [id number] F/up appt. JORGE FAY 02/28 Released w/o Limitations [facility](Gen Surgery /Procto Clinic [facility]) [facility](Gen Surgery/P rocto Clinic NMCP) OUTPATIENT [id number] f/u pilonid al cyst JORGE FAY Shreya Cash 04/19 Released w/o Limitations [facility](Gen Surgery /Procto Clinic [facility]) [facility](Hearing [place]) OUTPATIENT [id number] ARMIDAJACKELINJJ 05/09 Released w/o Limitations [facility](Hea ring Cons [place]) [facility](Gen Surgery/P rocto Clinic NMCP) OUTPATIENT [id number] F/U PILONID AL CYST BERTHA NGUYỄN Davie 10/08 Released w/o Limitations [facility](Gen Surgery /Procto Clinic NM[facility]) [facility]([place]) OUTPATIENT [id number] WOO CARRINGTON 03/07 Released w/o Limitations [facility](Hea ring Cons [place]) [facility](Hearing Cons [place]) OUTPATIENT [id number] THIAGO ZAPIEN 03/22 Released w/o Limitations [facility](Hea ring [facility] [place]) [facility] OUTPATIENT [id number] Theater Provider 09/15 Released w/o Limitations Theater Facilit y [facility](Hearing Cons [place]) OUTPATIENT [id number] TASHA RODRIGUEZ 02/26 Released w/o Limitations [facility](Hea ring Cons [place]) [facility] [place] OUTPATIENT [id number] Notes Entered by: JOSE BRINK 16 Feb 2019 1014 ------- ------- ------- ------- -- ANNUAL JOSE BRINK 02/16 Released w/o Limitations [facility](Hea ring Cons [place]) [facility] Referral Clinic) TELE CONSULT [id number] Notes Entered by: CRISTÓBAL SAUNDERS 23 Jul 2019 0650 ------- ------- ------- ------- -- COVID Call Center Triage form in [facility] - dos: 020 RHONDA ADAMS 07/22 [facility] Ref[facility]) [facility] [place]) OUTPATIENT [id number] 2 [address], [address] [place], THIAGO C 09/08 Released w/o Limitations [facility]) [facility]) OUTPATIENT [id number] 710/bas ty/A d/AFF ROBERT OSMAR W 09/09 Released w/o Limitations [facility]) [facility](Medical Readiness [place]) OUTPATIENT [id number] PHA [phone] ELVIN SALMON 04/25 Released w/o Limitations [facility](Med ical Readine ss [place]) [facility](Optomet ry [place]) OUTPATIENT [id number] EYE EXAM OBDULIA VILLALBA Jaylon 05/24 Released w/o Limitations [facility](Opt ometry [place]) [facility](Immuniz ation [place]) OUTPATIENT [id number] Notes Entered by: DOMENIC APODACA 24 May 2020 0816 ------- ------- ------- ------- -- Afluria DOMENIC APODACA 05/24 Released w/o Limitations [facility](Imm unizati on [place]) [facility](MHP [place] T1) OUTPATIENT [id number] multipl e/4-5 skin tags lower back/bi l axilla RHONDA ADAMSE 05/30 Released w/o Limitations [facility](M[facility] [place] T1) [facility](Emergen cy Medicine NMCP) OUTPATIENT [id number] GERALDO SARAVIA L 09/27 Released w/o Limitations [facility](Sofia rgency Medicin e NMCP) [facility](Medical Readiness [place]) OUTPATIENT [id number] [facility] VALERIA NAVARRETE 09/08 Released w/o Limitations [facility](Med ical Readine ss [place]) [facility](Nutriti on NMCP) OUTPATIENT [id number] Obesity , unspeci fied JONO HURTADO 09/27 Released w/o Limitations [facility](Nut rition [facility]) [facility] [place] T2) OUTPATIENT [id number] 2 prt waiver for bronchi tis, seen [facility] IAM MELENDEZ 10/05 Released w/o Limitations [facility] [place] T2) [facility](Cardiol ogy NMCP) OUTPATIENT [id number] SPEC BPAD DELFIN ARNDT 12/13 Released w/o Limitations [facility](Car diology NMCP) [facility](Cardiol ogy NMCP) OUTPATIENT [id number] Notes Entered by: KARISHMA RICHARDSON 13 Dec 2021 1120 ------- ------- ------- ------- -- ECHO DELFIN ARNDT 12/13 Released w/o Limitations [facility](Car diology NMCP) [facility](Cardiol ogy NMCP) TELE CONSULT [id number] Notes Entered by: SAKINA CATALAN 13 Dec 2021 1428 ------- ------- ------- ------- -- ECHO RESULTS DELFIN ARNDT 12/13 [facility](Car diology NMCP) [facility](Cardiol ogy NMCP) OUTPATIENT [id number] HEART MONITOR PLACEME NT ANDREW HUGHES 12/13 Released w/o Limitations [facility](Car diology NMCP) [facility] [place] T1) OUTPATIENT [id number] medicat ion concern s PEREZ GOMES Tiesha 01/08 Released w/o Limitations [facility] [place] T1) [facility](Cardiol ogy NMCP) TELE CONSULT [id number] Notes Entered by: SAKINA CATALAN 11 Jan 2022 1514 ------- ------- ------- ------- -- CT AND MONITOR RESULTS TOLU FUCHS 01/11 Other Not Elsewhere Classified [facility](Car diology NMCP) [facility] h(Cardiol ogy NMCP) TELE CONSULT [id number] Notes Entered by: MICHELLE MARTÍNEZ 12 Jan 2022 1312 ------- ------- ------- ------- -- REQUEST ING RESULTS FOR HEART MONITOR AND CT SCAN TOLU FUCHS 01/12 Other Not Elsewhere Classified [facility](Car diology NMCP) [facility](Cardiol ogy NMCP) OUTPATIENT [id number] Notes Entered by: HEATHER FITZGERALD 22 Jan 2022 0758 ------- ------- ------- ------- -- HEART MONITOR RESULT ANDREW HUGHES 01/22 Released w/o Limitations [facility](Car diology NMCP) [facility] h(Cardiol ogy NMCP) OUTPATIENT [id number] SPEC DELFIN ARNDT 01/25 Released w/o Limitations [facility](Car diology NMCP) [facility](Medical Readiness Ono) OUTPATIENT [id number] [phone] VALERIA NAVARRETE 03/09 Released w/o Limitations [facility](Med ical Readine ss Ono) [facility] MTMS BY PHARM 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 FORENSIC 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 15 MIN [id number] Diagnos is: ICD-10- CM 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 MUKUND BAPTISTE M 09/12 [facility] Outpatient Encounter [id number] FLAVIA HART C 09/15 [facility] Outpatient Encounter [id number] SHERRY CHAN M 09/15 [facility] OFFICE O/P NEW MOD 45 MIN [id number] Diagnos is: ICD-10- CM I10 Essenti al (primar y) hyperte nsion GAGE,MET INGRID 09/16 [facility] OFF/OP EST MAY X REQ PHY/QHP [id number] Diagnos is: ICD-10- CM 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.89 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 ing FLAVIA HART C 09/18 [facility] Outpatient Encounter [id number] 09/24 [facility] Outpatient Encounter [id number] 10/09 [facility] Outpatient Encounter [id number] 11/04 [facility] Outpatient Encounter [id number] 11/05 [facility] Outpatient Encounter [id number] 11/05 [facility] Outpatient Encounter [id number] LUCIA TREJO ISLALO M 11/06 [facility] Outpatient Encounter [id number] 2 11/13 [facility] OFFICE O/P NEW MOD 45 MIN [id number] [id number] Diagnos is: ICD-10- CM I10 Essenti al (primar y) hyperte WOO Adams 11/25 [facility] Outpatient Encounter [id number] 11/25 [facility] Outpatient Encounter [id number] KELLY VILLASEÑOR N 11/26 [facility] Outpatient Encounter [id number] [id number] KELLY VILLASEÑOR N 11/26 [facility] OFF/OP CNSLTJ NEW/EST MOD 40 [id number] [id number] Diagnos is: ICD-10- CM R51.9 Headach e, unspeci fied Danni JACKMAN 12/02 [facility] Outpatient Encounter [id number] Danni JACKMAN 12/09 [facility] OFFICE O/P NEW HI 60 MIN [id number] [id number] Diagnos is: ICD-10- CM R51.9 Headach e, unspeci fied Jaylon HUNTER 12/23 [facility] Outpatient Encounter [id number] [id number] Jaylon HUNTER 12/23 [facility] [id number] [id number] Diagnos is: ICD-10- CM Z71.89 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 [id number] ROGER,CY NTHIA A 12/26 [facility] Outpatient Encounter [id number] Diagnos is: ICD-10- CM G44.52 New daily persist ent headach e (NDPH) Danni JACKMAN 12/30 [facility] ECG RECORD/REV IEW [id number] Diagnos is: ICD-10- CM R00.2 Palpita tiPORTILLO Sargent 01/02 [facility] Outpatient Encounter [id number] [id number] Diagnos is: ICD-10- CM I45.6 Pre-exc itation syndrom e XI DE C 01/02 [facility] PSYTX W PT 30 MINUTES [id number] [id number] Diagnos is: ICD-10- CM F34.1 Dysthym ic disorde r Carlos Alberto ARNOLD ERA J 01/09 [facility] Outpatient Encounter [id number] [id number] Carlos Alberto ARNOLD ERA J 01/09 [facility] Outpatient Encounter [id number] [id number] 01/12 [facility] OFF/OP CONSLTJ NEW/EST HI 55 [id number] [id number] Diagnos is: ICD-10- CM I45.6 Pre-exc itation syndrom e IX DE C 01/13 [facility] Outpatient Encounter [id number] Diagnos is: ICD-10- CM I45.6 Pre-exc itation syndrom e XI DE C 01/15 [facility] Outpatient Encounter [id number] [id number] 01/21 [facility] Outpatient Encounter [id number] [id number] 01/26 [facility] Outpatient Encounter [id number] [id number] 01/28 [facility] HLTH&WB COACHING INDIV 1ST [id number] [id number] Diagnos is: ICD-10- CM Z71.89 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 ELVA Flores 01/30 [facility] Outpatient Encounter [id number] [id number] Danni GONZALEZ 02/19 [facility] Outpatient Encounter [id number] [id number] ANAND DURAN NTHIA A 02/23 [facility] Outpatient Encounter [id number] Danni GONZALEZ 02/23 [facility] Outpatient Encounter [id number] Diagnos is: ICD-10- CM I45.6 Pre-exc itation syndrom e EDIEAXI IL C 02/26 [facility] Outpatient Encounter [id number] Danni GONZALEZ 02/26 [facility] PSYTX W PT 30 MINUTES [id number] Diagnos is: ICD-10- CM F34.1 Dysthym ic disorde r Carlos Alberto ARNOLD 02/27 [facility] OFFICE O/P EST MOD 30 MIN [id number] Diagnos is: ICD-10- CM R51.9 Headach e, unspeci fiDanni Jones MARK 03/10 [facility] Outpatient Encounter [id number] [id number] ROMULO MAJANO A 03/13 [facility] INFRARED THERAPY [id number] [id number] Diagnos is: ICD-10- CM R51.9 Headach e, unspeci Jaylno Vasquez 03/13 [facility] HLTH&WB COACHING INDIV F-UP [id number] [id number] Diagnos is: ICD-10- CM Z71.89 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 ELVA Flores 03/20 [facility] INFRARED THERAPY [id number] [id number] Diagnos is: ICD-10- CM R51.9 Headach e, unspeci Jaylon Vasquez 03/20 [facility] Outpatient Encounter [id number] Danni GONZALEZ 03/31 [facility] Outpatient Encounter [id number] Danni GONZALEZ 03/31 [facility] Outpatient Encounter [id number] Diagnos is: ICD-10- CM Z04.89 Encount er for examina tion and observa tion for oth reasons KAREN WALDEN 04/12 [facility] Outpatient Encounter [id number] 04/14 [facility] Outpatient Encounter [id number] TIMUR REAL 04/15 [facility] Procedures Combined list of: 1) Procedures from Department of Veterans Affairs facilities going back up to thelast 18 months, not all VA non-surgical procedures are included; 2) All procedures from the Department of Defense facilities. Procedure Procedure Type Code Date Perfomer Comments Sourc e No data available for this section [facility] PURE TONE AUDIOMETRY (THRESHOLD); AIR ONLY 2014 [facility] PURE TONE AUDIOMETRY (THRESHOLD); AIR ONLY 2014 [facility] WAIVER SERVICES; NOT OTHERWISE SPECIFIED (NOS) 2022 [facility] EXT PAT & WHEN PERF,AUTO ACT ECG RHY CAROLINE EVNT REC,SYMPT-RELAT MEM LOOP,REM DOWNLOAD CAPABILITY UP TO 30 DAYS,24-HOUR ATTENDED MON;REVIEW &INTERPRET,A PHYS/OTH QUALIFIED HEALTH PIGEON FANCIER 2021 [facility] EXT PAT &,WHEN PERF,AUTO ACT ECG RHY DERIVED EVENT RECORD W SYMPT-RELAT MEMORY LOOP W REMOTE DOWNLOAD CAPABILITY UP TO 30 DAYS,24-HOUR ATTENDED MONITOR; RECORDING (INCL CONNECT, RECORD, & DISCONNECT) 2021 [facility] LEFT VENTRICULAR EJECTION FRACTION (LVEF) GREATER THAN OR EQUAL TO 40% OR DOCUMENTATION NORMAL OR MILDLY DEPRESSED LEFT VENTRICULAR SYSTOLIC FUNCTION (CAD, HF) 2021 [facility] ELECTROCARDIOGRAM, ROUTINE ECG WITH AT LEAST 12 LEADS; WITH INTERPRETATION AND REPORT 2021 [facility] MEDICAL NUTRITION THERAPY; GROUP (2 OR MORE INDIVIDUAL(S)), EACH 30 MINUTES 2021 [facility]; NOT OTHERWISE SPECIFIED (NOS) 2021 [facility] REMOVAL OF SKIN TAGS, MULTIPLE FIBROCUTANEOUS TAGS, ANY AREA; UP TO AND INCLUDING 15 LESIONS 2020 [facility] IMMUNIZATION ADMINISTRATION (INCLUDES PERCUTANEOUS, INTRADERMAL, SUBCUTANEOUS, OR INTRAMUSCULAR INJECTIONS); 1 VACCINE (SINGLE OR COMBINATION VACCINE/TOXOID) 2020 [facility] OPHTHALMOLOGICAL SERVICES: MEDICAL EXAMINATION AND EVALUATION WITH INITIATION OF DIAGNOSTIC AND TREATMENT PROGRAM; COMPREHENSIVE, NEW PATIENT, 1 OR MORE VISITS 2020 [facility] VIS FUNCT SCREEN,AUTOMAT/MARGARITA I-AUTOMAT BILAT QUANT DETERM VISUAL ACUITY,OCULAR ALIGN,COLOR VISION,PSEUDOISOCH ROMAT PLATES,& FIELD VIS (MAY INC ALL/SOME SCRN DETERM FOR CONTRAST SENSITIV,VIS UND GLARE) 2019 [facility] PATIENT EDUCATION, NOT OTHERWISE CLASSIFIED, NON-PHYSICIAN PROVIDER, INDIVIDUAL, PER SESSION 2018 [facility] PATIENT EDUCATION, NOT OTHERWISE CLASSIFIED, NON-PHYSICIAN PROVIDER, INDIVIDUAL, PER SESSION 2018 [facility] PATIENT EDUCATION, NOT OTHERWISE CLASSIFIED, NON-PHYSICIAN PROVIDER, INDIVIDUAL, PER SESSION 2017 [facility] PATIENT EDUCATION, NOT OTHERWISE CLASSIFIED, NON-PHYSICIAN PROVIDER, INDIVIDUAL, PER SESSION 2017 [facility] PURE TONE AUDIOMETRY (THRESHOLD), AUTOMATED; AIR ONLY 2016 [facility] POSTOPERATIVE FOLLOW-UP VISIT, NORMALLY INCLUDED IN THE SURGICAL PACKAGE, INDICATE THAT EVALUATION & MANAGEMENT SERVICE WAS PERFORMED DURING A POSTOPERATIVE PERIOD REASON RELATED ORIGINAL PROCEDURE 2016 [facility] POSTOPERATIVE FOLLOW-UP VISIT, NORMALLY INCLUDED IN THE SURGICAL PACKAGE, INDICATE THAT EVALUATION & MANAGEMENT SERVICE WAS PERFORMED DURING A POSTOPERATIVE PERIOD REASON RELATED ORIGINAL PROCEDURE 2016 [facility] POSTOPERATIVE FOLLOW-UP VISIT, NORMALLY INCLUDED IN THE SURGICAL PACKAGE, INDICATE THAT EVALUATION & MANAGEMENT SERVICE WAS PERFORMED DURING A POSTOPERATIVE PERIOD REASON RELATED ORIGINAL PROCEDURE 2015 [facility] IMMUNIZATION ADMINISTRATION (INCLUDES PERCUTANEOUS, INTRADERMAL, SUBCUTANEOUS, OR INTRAMUSCULAR INJECTIONS); 1 VACCINE (SINGLE OR COMBINATION VACCINE/TOXOID) 2015 [facility] POSTOPERATIVE FOLLOW-UP VISIT, NORMALLY INCLUDED IN THE SURGICAL PACKAGE, INDICATE THAT EVALUATION & MANAGEMENT SERVICE WAS PERFORMED DURING A POSTOPERATIVE PERIOD REASON RELATED ORIGINAL PROCEDURE 2015 [facility] UNLISTED SPECIAL SERVICE, PROCEDURE OR REPORT 2015 [facility] PURE TONE AUDIOMETRY (THRESHOLD), AUTOMATED; AIR ONLY 2015 [facility] IMMUNIZATION ADMINISTRATION BY INTRANASAL OR ORAL ROUTE; 1 VACCINE (SINGLE OR COMBINATION VACCINE/TOXOID) 2013 [facility] POLIOVIRUS VACCINE, INACTIVATED (IPV), FOR SUBCUTANEOUS OR INTRAMUSCULAR USE 2013 [facility] VIS FUNCT SCREEN,AUTOMAT/MARGARITA I-AUTOMAT BILAT QUANT DETERM VISUAL ACUITY,OCULAR ALIGN,COLOR VISION,PSEUDOISOCH ROMAT PLATES,& FIELD VIS (MAY INC ALL/SOME SCRN DETERM FOR CONTRAST SENSITIV,VIS UND GLARE) 2013 [facility] PATIENT EDUCATION, NOT OTHERWISE CLASSIFIED, NON-PHYSICIAN PROVIDER, GROUP, PER SESSION 2013 [facility] PURE TONE AUDIOMETRY (THRESHOLD); AIR ONLY 2013 [facility] Threshold Audiogram (Pure Tone) Automated Threshold Audiogram (Pure Tone) Automated 0208T 2018 TASHA RODRIGUEZ [facility] Patient education, not otherwise cla ified, non-physician provider, individual, per se ion 2018 TASHA RODRIUGEZ [facility] Threshold Audiogram (Pure Tone) Automated Threshold Audiogram (Pure Tone) Automated 0208T 2017 WOO ANDRADE [facility] Patient education, not otherwise cla ified, non-physician provider, individual, per se ion 2017 WOO ANDRADE Patient education, not otherwise cla ified, non-physician provider, individual, per se ion 2017 WOO CARRINGTON Threshold Audiogram (Pure Tone) Automated Threshold Audiogram (Pure Tone) Automated 0208T 2017 WOO CARRINGTON Patient education, not otherwise cla ified, non-physician provider, individual, per se ion 2016 JJ WEST Threshold Audiogram (Pure Tone) Automated Threshold Audiogram (Pure Tone) Automated 0208T 2016 JJ WEST Postoperative Visit, Without Charge Postoperative Visit, Without Charge 96128 2016 KADI FAY Postoperative Visit, Without Charge Postoperative Visit, Without Charge 69477 2016 KADI FAY Postoperative Visit, Without Charge Postoperative Visit, Without Charge 19095 2015 KADI FAY Influenza Split Virus Vaccine IM Preserv Free 0.5mL Dosage Quadrivalent 2015 CELESTINO JACINTO Influenza Seasonal, injectable quadrivalent - preservative free; Series #: 1; .5 mL; IM; Right Arm; g: Meteor; Lot: [id number]; VIS given (Malvin: 10/01/2014). [facility] Immunization Administration By Injection, One Vaccine Immunization Administration By Injection, One Vaccine 77125 2015 CELESTINO JACINTO Postoperative Visit, Without Charge Postoperative Visit, Without Charge 46622 2015 ZACH MANCIA Patient education, not otherwise cla ified, non-physician provider, group, per se ion 2015 JJ WEST Threshold Audiogram (Pure Tone) Automated Threshold Audiogram (Pure Tone) Automated 0208T 2015 JJ WEST Threshold Audiogram (Pure Tone) Threshold Audiogram (Pure Tone) 29337 2014 CAMPBELL CANO DD 2216 uploaded to ELVA Banuelos Threshold Audiogram (Pure Tone) Threshold Audiogram (Pure Tone) 63623 2014 MARIA TERESA FRANCO L Audiogram uploaded to ELVA Banuelos Visual Function Screening Visual Function Screening 59937 2013 TELMA MARTIN [facility] Patient education, not otherwise cla ified, non-physician provider, group, per se ion 2013 JJ LERNER [facility] Threshold Audiogram (Pure Tone) Threshold Audiogram (Pure Tone) 26815 2013 WALLY DRAKE Audiometry Group Testing Audiometry Group Testing 43212 2013 WALLY DRAKE Threshold Audiogram (Pure Tone) Automated Threshold Audiogram (Pure Tone) Automated 0208T YESSICA CABAN Patient education, not otherwise cla ified, non-physician provider, individual, per se ion YESSICA CABAN [facility] Visual Function Screening Visual Function Screening 22078 OSMAR ROBERT [facility] Determination Of Refractive State Determination Of Refractive State 67524 OBDULIA VILLALBA [facility] Ophthalmological New Patient Start Comprehensive Care Ophthalmological New Patient Start Comprehensive Care 18290 OBDULIA VILLALBA [facility] Influenza Split Virus Vaccine IM Preserv Free 0.5mL Dosage Quadrivalent Influenza Split Virus Vaccine IM Preserv Free 0.5mL Dosage Quadrivalent 24130 DOMENIC APODACA [facility] Immunization Administration By Injection, One Vaccine Immunization Administration By Injection, One Vaccine 04492 PAULIEDOMENIC FERNANDEZ [facility] Skin Biopsy Technique Shave Single Lesion Skin Biopsy Technique Shave Single Lesion [address]18[address] [facility] Skin Biopsy Technique Shave Each Separate/Additiona l Lesion Skin Biopsy Technique Shave Each Separate/Additiona l Lesion 61023 RHONDA ADAMS Skin Tag Removal Up To 15 Lesions Skin Tag Removal Up To 15 Lesions 14686 RHONDA ADAMS [facility] Preventive Medicine Administration Of Health Risk Questionnaire Patient-Focused Preventive Medicine Administration Of Health Risk Questionnaire Patient-Focused 81450 VALERIA NAVARRETE [facility] Waiver services; not otherwise specified (NOS) VALERIA NAVARRETE [facility] Medical Nutrition Therapy Group (2 or More Individuals) Each 30 Minutes Medical Nutrition Therapy Group (2 or More Individuals) Each 30 Minutes 68222 JONO HURTADO [facility] ECG 12-Lead With Interpretation And Report ECG 12-Lead With Interpretation And Report 95935 IAM MELENDEZ [facility] Patient ECG Event Recording - Hookup, Record, Disconnect Patient ECG Event Recording - Hookup, Record, Disconnect 69815 LARA IRVIN [facility] Echocardiogram Transthoracic 2-D With Spectral And Color Flow Doppler Echocardiogram Transthoracic 2-D With Spectral And Color Flow Doppler 20512 SHAHLA FLORIAN [facility] Hemodynamics Left Ventricular Ejection Fraction > or = 40% Hemodynamics Left Ventricular Ejection Fraction > or = 40% 3022F SHAHLA FLORIAN [facility] Patient ECG Event Recording - Physician Review & Interpretation Patient ECG Event Recording - Physician Review & Interpretation 80948 SHAHLA FLORIAN [facility] Social History Combined list of available smoking, tobacco, and other social history from 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 Social History Type Response Date Comment [facility] e Tobacco smoking status [facility]-TOBACCO NEVER USED 09/13/2023 [facility] Sex Representation Male 12/15/2021 Unknow n Organization Tobacco Never-cigarette user Cigarette use:. Never-other tobacco user (not cigarettes) Other Tobacco use:. [facility] Sexual Orientation [facility]acy Gender identity Amb[facility] y Pharm[facility] This section is an empty social history section. [facility] Assessment and Plan Combined list of future care activities from Department of Defense and Veterans Affairs facilities (e.g., assessment and plan notes, appointments, orders, and referrals). Additional future care activities may be listed in the Plan of Care section. 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 Carlos sun does not have any documented palpitations or AVRT and as such does not have Jpzhv-Wfkalqlqh-Xuckl syndrome. He only has an EKG finding of ventricular preexcitation. Based on the characteristics of the accessory pathway during EP study geovanna young is a very low r isk pathway. He does need more aggressive control of his blood pressure and advised him to take serial blood pressure checks at home. Carlos sun is also scheduled for a sleep study tonight. Orders: CV Electrocardiogram Level 4 E stablished V isit. 75663. 3 0 m inutes was spent preparing to see the patient, obtaining and/or reviewing history, examining the patient, ordering tests or procedures, counseling the patient and family, referring and communicating with other health care transition mgr, documenting information in the medical record, independently interpreting test results and communicating results to the patient, and coordinating care. The patient voiced understanding and no barriers to communication were identified. This note was prepared using voice recognition software and may contain inadvertent typographical errors. 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 Patient tolerated procedure well with discharge, wound and followup instructions as below. Extracted from:Title: Eye Care Office Visit Note Author: DESHAWN ALTMAN Date: 08/07/22 1. E ncounter for examination of eyes and vision without abnormal findings Normal GAT IOPs and undilated 90D health OU. RTC for CEE PRN. Extracted from:Title: WPW f/u and PRT Author: TRACE ALMANZAR MD Date: 06/26/22 1. W olff Parkinson White syndrome Given upcoming ablation and because he was just cleared to resume exercise by cardiology, I recommend to the command that the member be given 90 days to prepare for this cycle's PRT which ends in December. 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 He h as short episodes of palpitations that sound more like p remature ectopics t [place] true A VRT. H e has no documented AVRT s o as such does not have a diagnosis of Xoxow-Ixmerghdr-Dnsfs b ut has nothing more than an EKG abnormality of ventricular preexcitation. Extensive discussion with him about treatment options to include doing nothing or proceeding with EPS/RFA. He did have a recent exercise stress test a nd h e had continued a ntegrade conduction o f the a ccessory pathway up to a heart rate of 200 bpm. He desires to proceed with ablation. W kayleigh will plan on scheduling. 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 2. H ypertension Blood pressure under reasonable control with lisinopril 10 mg. He is awfully young a nd will need to pursue s econdary causes of hypertension. He does have signs and symptoms consistent with WANDA and will plan on starting with a sleep study a nd if that comes back negative then we will pursue other etiologies. Ordered: Referral Request 2.0 Orders: CV Electrocardiogram Level 4 N ew V isit. 12896. 4 5 m inutes during this visit was spent preparing for the visit, educating the patient on their condition, reviewing results, previous notes a nd coordinating care. The patient voiced understanding and no barriers to communication were identified. 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 The patient has always been asymptomatic and tolerated the stress test with no issue. Given that his delta wave persisted with exercise, we will refer to electrophysiology at this time for evaluation for invasive intervention with ablation. -Referral placed -No limitations at this time from cardiology standpoint #HTN: Better controlled today than in past. Continue current medications -Continue home Lisinopril, 10mg #Obesity: No limitations from cards perspective. Encouraged healthy lifestyle choices and cleared for full PT Tay Herndon MD, PGY-1 LT, MC, USN TY Claims Adjustor, NMCP Pager: [phone] Seen and discussed with Dr. Arndt, staff Director Fundraising. Addendum by DELFIN ARNDT DO on May 30, 2022 12:19:30 EDT Patient s een and evaluatedwith the I ntern. Agree with all major points as outlined above. A ccessory pathway continues to conduct even at HR approaching 200bpm. No high-risk s/s such as sustained arrhythmias on monitoring or hx of syncope. Will refer to EP for consideration of WPW ablation. LCDR Delfin Arndt DO, [facility] Head, Department of Cardiology [facility] Extracted from:Title: WPW and Obesity Author: TRACE ALMANZAR MD Date: 04/27/22 1. 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 Can place him on LIMDU if needed. 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 F/u with PCM following cardiology or sooner PRN. 2. O besity Consult placed to discuss with nutrition. Ordered: Referral Request 2.0 Extracted from:Title: Echo Note Author: SUNDAY RAMIREZ RN Date: 04/06/22 This is a procedure only. Please see Results in Results tab. 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 Carlos sun does not have any documented palpitations or AVRT and as such does not have Orxxg-Hmeyypmnm-Rwpcf syndrome. He only has an EKG finding of ventricular preexcitation. Based on the characteristics of the accessory pathway during EP study i t is a very low r isk pathway. He does need more aggressive control of his blood pressure and advised him to take serial blood pressure checks at home. Carlos sun is also scheduled for a sleep study tonight. Orders: CV Electrocardiogram Level 4 E stablished [place]it. [id number]. 3 0 m inutes was spent preparing to see the patient, obtaining and/or reviewing history, examining the patient, ordering tests or procedures, counseling the patient and family, referring and communicating with other health care transition mgr, documenting information in the medical record, independently interpreting test results and communicating results to the patient, and coordinating care. The patient voiced understanding and no barriers to communication were identified. This note was prepared using voice recognition software and may contain inadvertent typographical errors. Sara Jarquin MD [facility], [facility] Cardiac Asset Protection Associate [facility] Extracted from:Title: Cardiac Electrophysiology Discharge Summary Author: SARA JARQUIN MD Date: 08/14/22 1. W olraj Parkinson White syndrome-s/p EPS and attempted RFA of right posterolateral AP-08/14/22 Patient admitted to EP lab via DOS and underwent electrophysiology study and unsuccessful ablation of right posterolateral AP. Patient tolerated procedure well with discharge, wound and followup instructions as below. Extracted from:Title: Eye Care Office Visit Note Author: DESHAWN ALTMAN Date: 08/07/22 1. E ncounter for examination of eyes and vision without abnormal findings Normal GAT IOPs and undilated 90D health OU. RTC for CEE PRN. Extracted from:Title: WPW f/u and PRT Author: TRACE ALMANZAR MD Date: 06/26/22 1. W carlos Parkinson White syndrome Given upcoming ablation and because he was just cleared to resume exercise by cardiology, I recommend to the command that the member be given 90 days to prepare for this cycle's PRT which ends in December. 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 He h as short episodes of palpitations that sound more like p remature ectopics t [place] true A VRT. Carlos sun has no documented AVRT s o as such does not have a diagnosis of Fddyb-Dblauslkn-Soqcl b ut has nothing more than an EKG abnormality of ventricular preexcitation. Extensive discussion with him about treatment options to include doing nothing or proceeding with EPS/RFA. He did have a recent exercise stress test a nd h e had continued a ntegrade conduction o f the a ccessory pathway up to a heart rate of 200 bpm. He desires to proceed with ablation. Mukesh sun will plan on scheduling. 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 2. H ypertension Blood pressure under reasonable control with lisinopril 10 mg. He is awfully young a nd will need to pursue s econdary causes of hypertension. He does have signs and symptoms consistent with WANDA and will plan on starting with a sleep study a nd if that comes back negative then we will pursue other etiologies. Ordered: Referral Request 2.0 Orders: CV Electrocardiogram Level 4 N ew V isit. [id number]. 4 5 m inutes during this visit was spent preparing for the visit, educating the patient on their condition, reviewing results, previous notes a nd coordinating care. The patient voiced understanding and no barriers to communication were identified. 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 The patient has always been asymptomatic and tolerated the stress test with no issue. Given that his delta wave persisted with exercise, we will refer to electrophysiology at this time for evaluation for invasive intervention with ablation. -Referral placed -No limitations at this time from cardiology standpoint #HTN: Better controlled today than in past. Continue current medications -Continue home Lisinopril, 10mg #Obesity: No limitations from cards perspective. Encouraged healthy lifestyle choices and cleared for full PT Tay Herndon MD, PGY-1 LT, MC, USN TY Claims Adjustor, NMCP Pager: [phone] Seen and discussed with Dr. Arndt, staff Director Fundraising. Addendum by DELFIN ARNDT DO on May 30, 2022 12:19:30 EDT Patient s een and evaluatedwith the I ntern. Agree with all major points as outlined above. A ccessory pathway continues to conduct even at HR approaching 200bpm. No high-risk s/s such as sustained arrhythmias on monitoring or hx of syncope. Will refer to EP for consideration of WPW ablation. LCDR Delfin Arndt DO, [facility] Head, Department of Cardiology [facility] Extracted from:Title: WPW and Obesity Author: TRACE ALMANZAR MD Date: 04/27/22 1. 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 Can place him on LIMDU if needed. 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 F/u with PCM following cardiology or sooner PRN. 2. O besity Consult placed to discuss with nutrition. Ordered: Referral Request 2.0 Extracted from:Title: Echo Note Author: SUNDAY RAMIREZ RN Date: 04/06/22 This is a procedure only. Please see Results in Results tab. 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 Carlos sun does not have any documented palpitations or AVRT and as such does not have Kgcft-Utvincsdv-Yrwgv syndrome. He only has an EKG finding of ventricular preexcitation. Based on the characteristics of the accessory pathway during EP study geovanna young is a very low r isk pathway. He does need more aggressive control of his blood pressure and advised him to take serial blood pressure checks at home. Carlos sun is also scheduled for a sleep study tonight. Orders: CV Electrocardiogram Level 4 E stablished V isit. [id number]. 3 0 m inutes was spent preparing to see the patient, obtaining and/or reviewing history, examining the patient, ordering tests or procedures, counseling the patient and family, referring and communicating with other health care transition mgr, documenting information in the medical record, independently interpreting test results and communicating results to the patient, and coordinating care. The patient voiced understanding and no barriers to communication were identified. This note was prepared using voice recognition software and may contain inadvertent typographical errors. 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 Patient tolerated procedure well with discharge, wound and followup instructions as below. Extracted from:Title: Eye Care Office Visit Note Author: DESHAWN ALTMAN Date: 08/07/22 1. E ncounter for examination of eyes and vision without abnormal findings Normal GAT IOPs and undilated 90D health OU. RTC for CEE PRN. Extracted from:Title: WPW f/u and PRT Author: TARCE ALMANZAR MD Date: 06/26/22 1. W olff Parkinson White syndrome Given upcoming ablation and because he was just cleared to resume exercise by cardiology, I recommend to the command that the member be given 90 days to prepare for this cycle's PRT which ends in December. 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 He h as short episodes of palpitations that sound more like p remature ectopics t [place] true A VRT. Carlos sun has no documented AVRT s o as such does not have a diagnosis of Qnaan-Bcljyzdlf-Atpvl b ut has nothing more than an EKG abnormality of ventricular preexcitation. Extensive discussion with him about treatment options to include doing nothing or proceeding with EPS/RFA. He did have a recent exercise stress test a nd carlos sun had continued a ntegrade conduction o f the a ccessory pathway up to a heart rate of 200 bpm. He desires to proceed with ablation. Mukesh sun will plan on scheduling. 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 2. H ypertension Blood pressure under reasonable control with lisinopril 10 mg. He is awfully young a nd will need to pursue s econdary causes of hypertension. He does have signs and symptoms consistent with WANDA and will plan on starting with a sleep study a nd if that comes back negative then we will pursue other etiologies. Ordered: Referral Request 2.0 Orders: CV Electrocardiogram Level 4 N ew V isit. [id number]. 4 5 m inutes during this visit was spent preparing for the visit, educating the patient on their condition, reviewing results, previous notes a nd coordinating care. The patient voiced understanding and no barriers to communication were identified. 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 The patient has always been asymptomatic and tolerated the stress test with no issue. Given that his delta wave persisted with exercise, we will refer to electrophysiology at this time for evaluation for invasive intervention with ablation. -Referral placed -No limitations at this time from cardiology standpoint #HTN: Better controlled today than in past. Continue current medications -Continue home Lisinopril, 10mg #Obesity: No limitations from cards perspective. Encouraged healthy lifestyle choices and cleared for full PT Tay Herndon MD, PGY-1 LT, MC, USN TY Claims Adjustor, NMCP Pager: [phone] Seen and discussed with Dr. Arndt, staff Director Fundraising. Addendum by DELFIN ARNDT DO on May 30, 2022 12:19:30 EDT Patient s een and evaluatedwith the I ntern. Agree with all major points as outlined above. A ccessory pathway continues to conduct even at HR approaching 200bpm. No high-risk s/s such as sustained arrhythmias on monitoring or hx of syncope. Will refer to EP for consideration of WPW ablation. LCDR Delfin Arndt DO, [facility] Head, Department of Cardiology [facility] Extracted from:Title: WPW and Obesity Author: TRACE ALMANZAR MD Date: 04/27/22 1. 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 Can place him on LIMDU if needed. 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 F/u with PCM following cardiology or sooner PRN. 2. O besity Consult placed to discuss with nutrition. Ordered: Referral Request 2.0 Extracted from:Title: Echo Note Author: SUNDAY RAMIREZ RN Date: 04/06/22 This is a procedure only. Please see Results in Results tab. 04/19/2024 [id number] Plan of Care List of future care activities from Department of [facility] facilities. Additional future care activities may be listed in the Assessment and Plan section. Date/Time Care Activity Care Activity Detail Facili ty 04/24/2024 AMBULATORY - NONE [facility]AT[facility] NONE [facility] 04/24/2024 AMBULATORY - MEDICINE AMBULATORY - MEDICI [facility] 04/29/2024 AMBULATORY - NONE [facility]ULATORY - NONE [facility] 04/29/2024 AMBULATORY - MEDICINE AMBULATORY - MEDICI [facility] 05/20/2024 AMBULATORY - SURGERY AMBULATORY - SURGERY [facility] 05/22/2024 AMBULATORY - NONE AM[facility]ULATORY - NONE [facility] 05/29/2024 AMBULATORY - NONE [facility]ULATORY - NONE [facility] 06/16/2024 AMBULATORY - MEDICINE AMBULATORY - MEDICI [facility] 09/08/2024 AMBULATORY - MEDICINE AMBULATORY - MEDICI NE [facility] 04/29/2024 Laboratory - Asp Web Developer ry Order BASIC METABOLIC PANEL GREEN LI/HEP BLD/PLAS PLASMA PRE-OP [facility] 04/29/2024 Laboratory - Asp Web Developer ry Order PT/INR NEW (STL-MA) BLOOD PLASMA PRE-OP [facility] 04/29/2024 Laboratory - Asp Web Developer ry Order CBC BLOOD PRE-OP [facility] Functional Status Combined list of recent functional and cognitive assessments recorded at [facility] [employer] [facility] [place] Functional [place] Measurement (FIM) Scale: 1 = Total Assistance (Subject = 0% +), 2 = Maximal Assistance (Subject = 25% +), 3 = Moderate Assistance (Subject = 50% +), 4 = Minimal Assistance (Subject = 75% +), 5 = Supervision, 6 = Modified [place] (Device), 7 = Complete [place] (Timely, Safely). Assessment Date/Time Source Assessment Type Assessment Skill Assessment Score Assessment Details FUNCTIONAL 08/14/22C urrent Home Treatments None 08/14/22Patient Position Head of bed flat 08/14/22Living Situation Home independently ADLs Independent 08/06/22Ability to Read/Write Able to read, Able to write
--- OUTSIDE RECORDS SUMMARY | 2024-04-18 21:43 | XMS_ITS | Encounter Summary ---
Author Name [facility] Organization [facility] [place] Address [address] [place] [address] Care Team Providers Care Head Up Operator Helper Name Role Phone DANK MENDOSA Primary Care Provider Unavail able Selected Encounter This section includes the information on record at [place] for the Encounter. Date/Time Encounter Type Encounter Description Reason Provider Source Mar 13, 2024 10:30 AM INFRARED THERAPY [facility] TREATMENT ICD-10-CM R51.9 Headache, unspecified IFRAH HUNTER Kayleigh Encounter Template Text not used by [place] Assessments - Encounter Diagnoses This section includes the primary and secondary diagnoses documented for the Encounter. Date/Time Primary/Secondary Diagnosis Diagnosis Name Provider Source Mar 13, 2024 10:38 AM PRIMARY Headache, unspecified IFRAH HUNTER [facility] Mar 13, 2024 10:38 AM SECONDARY Depression, unspecified IFRAH HUNTER [facility] Mar 13, 2024 10:38 AM SECONDARY Dysthymic disorder IFRAH HUNTER [facility] Mar 13, 2024 10:38 AM SECONDARY Generalized anxiety disorder IFRAH HUNTER [facility] Mar 13, 2024 10:38 AM SECONDARY Palpitations IFRAH HUNTER [facility] Plan of Treatment: Future Appointments (+ 6 months) and Future Tests (+/- 45 days) The Plan of Treatment section includes future care activities for the patient from all [place] [facility]. This section includes future appointments and future orders which are active, pending or scheduled. Future Appointments This section includes appointments that were scheduled to occur 6 months from the date of the Encounter, up to a maximum of 20 appointments. The data comes from all [place] [facility] Appointment Date/Time Appointment Type Appointme nt Facility Name Mar 20, 2024 09:00 AM AMBULATORY - NONE . [facility] Mar 20, 2024 10:30 AM AMBULATORY - NONE [facility] Apr 24, 2024 10:00 AM AMBULATORY - NONE [facility] Apr 24, 2024 01:00 PM AMBULATORY - MEDICINE [facility] Apr 29, 2024 06:45 AM AMBULATORY - NONE [facility] Apr 29, 2024 07:00 AM AMBULATORY - MEDICINE [facility] May 20, 2024 03:00 PM AMBULATORY - SURGERY [facility] May 22, 2024 10:30 AM AMBULATORY - NONE [facility] May 29, 2024 10:30 AM AMBULATORY - NONE [facility] Jun 16, 2024 03:00 PM AMBULATORY - MEDICINE [facility] Sep 08, 2024 03:00 PM AMBULATORY - MEDICINE [facility] Active, Pending, and Scheduled Orders This section includes a listing of several types of active, pending, and scheduled orders, including clinic medications orders, diagnostic test orders, procedure orders and consult orders; where the start date of the order is 45 days before the date of the Encounter or 45 days after the date of theEncounter. The data comes from all [facility]. Test Date/Time Test Type Test Details Facility Name Jan 29, 2024 11:17 AM Consult Order COMMUNITY CARE-SLEEP MANDIBULAR REPOSITIONING DEVICE [facility] Cons Mock Up Maker's Choice [facility] Encounter Notes: All associated encounter notes This section contains the clinical notes associated to the Encounter. Date/Time Encounter Note(s) Provider Source Mar 13, 2024 10:27 AM INTEGRATIVE HEALTH NOTE: LOCAL TITLE: ACUPUNCTURE WHOLE HEALTH NOTE [facility] STANDARD TITLE: INTEGRATIVE HEALTH NOTE DATE OF NOTE: MAR 13, 2024@10:27 ENTRY DATE: MAR 13, 2024@10:27:09 AUTHOR: DANK HUNTER EXP COSIGNER: URGENCY: STATUS: COMPLETED Hoffman was identified by full name and last four. Hoffman verbally consented to acupuncture treatment on 03/13/2024. Reviewed risks and potential side effects including : bleeding, bruising, increased pain, discomfort during and after needle placement, dizziness, infection, and organ puncture. A brief description of the acupuncture treatment, including potential benefits, was provided. was given the option to decline acupuncture treatment. Promis-29 baseline assessment completed prior to start of treatment #1. Tx #: 1 TODAY slight headache. 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 and around eyes and bridge of nose sometimes frontal, vertex, occipital several times per week/ last up an hour now every day since taking B2 pills takes Lisinopril for HTN Multivitamin Fish Oil VitD REVIEW OF SYSTEMS: Body Temp (run hot or cold): runs hot Perspiration: sweats easily during day, has fan that blows on constantly Digestion: see below Appetite: medium, gas, cramping, mild bloating - cramping can occur after Elimination: alt loose, constipation - rare difficulty - 1B< per day Urination: I=O - clear to yellow Thirst: 2 bottles minimum propel water, dry mouth, thirst Sleep Quality: pretty decent Easy to Fall Asleep: yes Stay Asleep: yes Hours per Night: 6 hrs Musculoskeletal: not currently old injury torn ligament in left shoulder - sometimes sharp ROM is good Head: lightheaded dizzy Headaches: Eyes: rare/mild dry eyes/blurry Ears: low pitch tinnitus Jaw/Teeth/Mouth: clench jaw short term issues 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 a portion of deployment - due to stress Skin: Face gets both dry and oil Allergies: runny and congested, sometimes cough and phlegm - can get light green Chest: tightness, palpitations - started a few years ago [place] - had ablation, went away, but recent came back SOB Mood: positive Diet: no breakfast, water, left over PBJ, veggies (cooked), chips, fruit snacks, sometimes ice cream Exercise: can, but does not - used to lift weights w/friend - hurts to do workout Energy Level: varies throughout day, 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 1st Set of [place]: LI-4 LR14/3 2nd Set of [place]: LU1 Manan 17 SJ5 TDP Infrared Lamp was provided feet during needle retention period. Patient received brief massage of NA after needles were removed. Set 1 [place] were retained for 30 minutes. Set 2 [place] were retained for 30 minutes. TIME STATEMENT: 60 minutes spent in record review, evaluation, assessment, care coordination, and documentation. Patient tolerated the treatment well. reports that HIRSCH went away during treatment - but then returned during - added right SJ5 and removed LI-4 HOME CARE/ EDUCATION: provided with online and mobile [facility] resources. Hoffman instructed to stay well hydrated with room temperature water. RETURN TO CLINIC / TREATMENT PLAN: Hoffman will be scheduled for a follow-up appointment on 03/20/2024. Will trial BFA 2 more times before Full Body begins /es/ MATTHEW Sauer LAc Advanced Making Line Worker Signed: 03/13/2024 11:12 DANK HUNTER [facility]
--- OUTSIDE RECORDS SUMMARY | 2024-04-18 21:43 | XMS_ITS | Encounter Summary ---
Author Name [facility] [place] [facility] [facility] [place] Address [address] [place] [address] Care Team Providers Care Senior Laboratory Technician Name Role Phone DANK MENDOSA Primary Care Provider Unavail able Selected Encounter This section includes the information on record at [place] for the Encounter. Date/Time Encounter Type Encounter Description Reason Provider Source Jan 31, 2024 10:00 AM [facility]TH[facility]WB COACHING [address] [facility] ICD-10-CM Z71.89 Other specified counseling ELVA WARD [facility] Encounter Template Text not used by [place] Assessments - Encounter Diagnoses This section includes the primary and secondary diagnoses documented for the Encounter. Date/Time Primary/Secondary Diagnosis Diagnosis Name Provider Source Jan 31, 2024 10:57 AM PRIMARY Other specified counseling ELVA WARD [facility] Plan of Treatment: Future Appointments (+ 6 months) and Future Tests (+/- 45 days) The Plan of Treatment section includes future care activities for the patient from all [place] treatmentfacilities. This section includes future appointments and future orders which are active, pending or scheduled. Future Appointments This section includes appointments that were scheduled to occur 6 months from the date of the Encounter, up to a maximum of 20 appointments. The data comes from all [place] treatment facilities. Appointment Date/Time Appointment Type Appointme nt Facility Name Feb 28, 2024 01:00 PM AMBULATORY - MEDICINE [facility] Mar 05, 2024 01:00 PM AMBULATORY - NONE [facility] Mar 10, 2024 03:00 PM AMBULATORY - MEDICINE [facility] Mar 13, 2024 10:30 AM AMBULATORY - NONE [facility] Mar 20, 2024 09:00 AM AMBULATORY - NONE [facility] Mar 20, 2024 10:30 AM AMBULATORY - NONE . BHARGAVI Broderick [facility] Apr 24, 2024 10:00 AM AMBULATORY - NONE . BHARGAVI Broderick [facility] Apr 24, 2024 01:00 PM AMBULATORY - MEDICINE [facility] Apr 29, 2024 06:45 AM AMBULATORY - NONE [facility] Apr 29, 2024 07:00 AM AMBULATORY - MEDICINE [facility] May 20, 2024 03:00 PM AMBULATORY - SURGERY [facility] Jaylon FLORES [facility] May 22, 2024 10:30 AM AMBULATORY - NONE [email or web address] May 29, 2024 10:30 AM AMBULATORY - NONE [facility] Bro[facility] Jun 16, 2024 03:00 PM AMBULATORY - MEDICINE [facility] Active, Pending, and Scheduled Orders This section includes a listing of several types of active, pending, and scheduled orders, including clinic medications orders, diagnostic test orders, procedure orders and consult orders; where the start date of the order is 45 days before the date of the Encounter or 45 days after the date of theEncounter. The data comes from all [place] treatment facilities. Test Date/Time Test Type Test Details Facility Name Jan 17, 2024 09:07 AM Procedure Order CP ELECTRO PHYSIOLOGY STL CP ELECTROPHYSIOLOGY STL Proc [facility] Jan 29, 2024 11:17 AM Consult Order COMMUNITY CARE-SLEEP MANDIBULAR REPOSITIONING DEVICE [facility] Cons [facility] Encounter Notes: All associated encounter notes This section contains the clinical notes associated to the Encounter. Date/Time Encounter Note(s) Provider Source Jan 31, 2024 10:49 AM [facility]TEGRATIVE HEALTH NOTE: LOCAL TITLE: HEALTH AND WELLNESS COACHING STANDARD TITLE: INTEGRATIVE HEALTH NOTE DATE OF NOTE: JAN 31, 2024@10:49 ENTRY DATE: JAN 31, 2024@10:49:54 AUTHOR: ELVA WARDIGNER: URGENCY: STATUS: COMPLETED Health and Wellness Coaching HEALTH AND WELLNESS COACHING VISIT *Type of Visit: In-person *Session number: 1 Time spent with [place]: 30-60 minutes Health and Wellness Coaching Agreement was discussed and agreed to by and coach mechanic. Well-Being Signs (WBS) reviewed. Well-Being Signs Well-Being Signs (WBS) WBS Average Score: 6.67 Questions and Answers: Over the past month, on average how often have you been: 1. Fully satisfied with how these things are going? 7 2. Regularly involved in things that are important to you? 7 3. Functioning your best in the most important things you do? 6 What really matters to PRINCESS SHUKLA. [place], Aspiration, Purpose (MAP) Improve heart health [place] was seen for Health and Wellness Coaching related to: Personal Development Power of the Mind VETERANS GOALS Long-Term Whole Health Goals: Other: Improve heart health Short-Term S.M.A.R.T. Goals: 's S.M.A.R.T. goal(s): set a new S.M.A.R.T. goal(s) of: Goal 1: Have next heart ablation in February ADDITIONAL SESSION INFORMATION Additional information (e.g. 's self-identified strengths, Values, Vision for the Future): Follow-up appointment with . Christopher reports that his work schedule has changed allowing for more of a social life. Christopher states that his been focusing on heart health and has a procedure in February which limits him at the moment for scheduling for anything else. Christopher stated that he is still interested in Biofeedback but after February. Christopher agreed to follow-up with tech writer in 2024. PLAN Plan: Arranged follow-up with [place]: Christopher agreed to follow-up by: In-person visit /chey/ ELVA WARD WHOLE HEALTH SECURITY RISK ANALYST Signed: 01/31/2024 10:58 ELVA WARD [facility]
[2024-04-18 21:46] LABS: Alanine Aminotransferase 55 U/L (6-50); Alkaline Phosphatase 62 U/L (38-126); Anion Gap 15 mmol/L (4-12); Aspartate Amino Transferase 39 U/L (17-59); Bilirubin,Total 0.7 mg/dL (0.2-1.3); Blood Urea Nitrogen 16 mg/dL (9-20); Calcium 10.2 mg/dL (8.4-10.2); Carbon Dioxide 22 mmol/L (22-30); Chloride 103 mmol/L (98-107); Estimated CRCL calculation 101 ml/min; Estimated Glomerular Filt Rate > 60; Glucose 142 mg/dL (65-110); Lipase 63 U/L (23-300); Potassium 4.2 mmol/L (3.4-5.0); Sodium 140 mmol/L (137-145)
--- NOTE | 2024-04-19 00:14 | ECG_ITS ---
Test Date: 2024-04-19 00:19:45 Measurements Intervals [place] Rate: 126 P: -58 TN: 220 QRS: -9 QRSD: 166 T: 181 QT: 359 QTc: 521 Interpretive Statements ATRIAL FLUTTER/TACHYCARDIA WITH RAPID VENTRICULAR RESPONSE LEFT BUNDLE BRANCH BLOCK ABNORMAL ECG No previous ECG available for comparison Electronically Signed On 04-19-2024 07:19:03 DIRECTOR OF GOVERNMENT SALES by Carlton Sellers D.O.
[2024-04-19 01:55] LABS: Add Urine Microscopic? NO; Appearance Urine Clear (Clear); Bilirubin Urine Negative (Negative); Blood Urine Negative (Negative); Color Urine Yellow (Yellow); Glucose Urine UA Negative (Negative); Ketones Urine Negative (Negative); Leukocyte Esterase Ur Negative LEU/UL (Negative); Nitrate Urine Negative (Negative); Protein Urine Negative (Negative); Specific Grav Ur 1.033 (1.001-1.035); Urobilinogen Urine 0.2 mg/dL (<2.0)
== END 2024-04-19 02:39 | disposition home or self-care (01) ==
PROVIDERS: Emergency Provider Physician Assistant
DX: N13.2 Hydronephrosis with renal and ureteral calculous obstruction (principal); R00.0 Tachycardia, unspecified; I48.92 Unspecified atrial flutter; I44.7 Left bundle-branch block, unspecified
CPT/HCPCS: 36415; 74018; 74177; 80053; 81003; 83690; 85025; 93005; 96361; 96374; 96375; 99284; J2270; J2405; J7030; Q9967